=== PATIENT | female | born 1935 | race Hispanic/Latino ===

== ENCOUNTER 2018-05-02 05:06 | Inpatient (IN) | payer MEDICARE ==
--- NOTE | 2018-05-01 19:15 | NUR ---
ASSESSMENT; REPORT FROM CHRISTOS ZHAO. PATIENT ARRIVED TO ROOM 209 ACCOMPANIED BY ER NURSE. PATIENT INTUBATED AND SEDATED. ETT 7.5 @ 22 CM AT LIP VENT SETTINGS AC RATE 18/TV 500 /PEEP 5 / FIO2 50 %. DIPRIVAN, VERSED AND LEVOPHED DRIPS INFUSING BY IV. PATIENT OPENS EYES, R PUPIL SLIGHTLY LARGER THAN LEFT, MOVES ALL EXTREMITIES WEAK X 4, LUNGS COARSE, ABDOMEN SOFT, LARGE AMT BROWN BM PER ADULT DIAPER, PEDAL PULSES WEAK , BILATERAL PEDAL EDEMA 3 +. SEE FLOWSHEET FOR COMPLETE ASSESSMENT. Addendum: 05/03/18 at 0250 by TASHI RODRIGUEZ RN RN DISREGARD NOTE-WRONG DATE
[~2018-05-02] VITALS: Ht 162.6 cm; Wt 109.5 kg
[2018-05-02] VITALS (12 sets, daily range): BP systolic 91–134; BP diastolic 47–96
[~2018-05-02 05:06] MED LIST: APIX5TAB PO; CLOP75TA14 PO; FISH1CAP27 PO; GABA-533 PO; LISI2.5T2 PO; METF750T2 PO; SERT25TA5 PO; SIMV40TA59 PO
[2018-05-02] MEDS ORDERED: ONDANSETRON HCL 4 MG/2 ML VIAL ONE (05:22)
[2018-05-02] MEDS ORDERED: FENTANYL CITRATE PF 50 MCG/1 ML 2ML VIAL ONE (05:23)
[2018-05-02] MEDS ORDERED: IPRATROPIUM/ALBUTEROL SULFATE 3 ML SOLUTION IH ONE (05:36)
[2018-05-02 06:22] LABS: BASOPHILS % (AUTO) 0.1 % (0.0-5.0); HEMATOCRIT 37.1 % (36-48); LYMPHOCYTES % (AUTO) 3.4 % (21.0-51.0); MEAN CORPUSCULAR HEMOGLOBIN 31.1 pg (27.0-33.0); MEAN CORPUSCULAR HGB CONC 30.6 g/dL (32.0-36.0); MEAN CORPUSCULAR VOLUME 101.8 fL (79-99); MONOCYTES % (AUTO) 4.4 % (3.0-13.0); NEUTROPHILS % (AUTO) 92.1 % (40.0-77.0); PLATELET COUNT (AUTO) 209 K/uL (130-400); RED BLOOD CELL COUNT(AUTO) 3.64 MIL/uL (4.00-5.50); RED CELL DISTRIBUTION WIDTH 16.6 % (11.0-15.5); WHITE BLOOD COUNT (AUTO) 12.8 K/uL (4.8-10.8)
[2018-05-02 06:27] LABS: POTASSIUM 5.9 mmol/L (3.5-5.1)
[2018-05-02 06:34] LABS: INR 1.13 (0.85-1.15); PARTIAL THROMBOPLASTIN TIME 29.6 SEC (26.3-35.5); PROTHROMBIN TIME 11.8 SEC (9.6-11.6)
[2018-05-02 06:52] LABS: BILIRUBIN,TOTAL 1.1 mg/dL (0.2-1.0); TOTAL PROTEIN, SERUM 7.6 g/dL (6.0-8.3); TROPONIN I 0.15 ng/mL (0.00-0.06)
[2018-05-02] MEDS ORDERED: ACETAMINOPHEN 325 MG TAB PO PRN (07:30)
[2018-05-02] MEDS ORDERED: MORPHINE SULFATE 4 MG/1ML SYG IV PRN (07:30)
[2018-05-02] MEDS ORDERED: HYDRALAZINE HCL 20 MG/ML VIAL IV PRN (07:30)
[2018-05-02] MEDS ORDERED: MORPHINE SULFATE 2 MG/ML 1ML SYG IV PRN (07:30)
[2018-05-02] MEDS ORDERED: SODIUM BICARB 8.4% 50ML SYRING 150 MEQ in DEXTROSE 5%-WATER 1,000 ML IV SCH (07:30)
[2018-05-02] MEDS: FAMOTIDINE/PF 20 MG/2 ML VIAL IV SCH ×2 (09:00→21:18)
[2018-05-02] MEDS: HEPARIN SODIUM 5000UNIT/ML 1ML VIAL SQ SCH ×3 (09:00→21:21)
[2018-05-02] MEDS ORDERED: METOPROLOL TARTRATE 25 MG TAB PO SCH (09:00)
[2018-05-02 09:14] LABS: MAGNESIUM 1.7 mg/dL (1.80-2.40); PHOSPHORUS 6.6 mg/dL (2.5-4.9); TROPONIN I 0.19 ng/mL (0.00-0.06)
[2018-05-02] MEDS ORDERED: NOREPINEPHRINE BITARTRATE 1 MG/1 ML ML IV ONE ×2 (09:20→17:43)
[2018-05-02] MEDS ORDERED: NALOXONE HCL 0.4 MG/1 ML ML ONE ×3 (10:24→14:35)
[2018-05-02 11:05] LABS: ABG BASE EXCESS -4.5 mmol/L (-2.0-3.0); ABG HCO3 32.2 mmol/L (21.0-28.0); ABG OXYGEN SATURATION 94.9 % (95.0-99.0); ABG PCO2 149 mmHg (32-45)
[2018-05-02] MEDS ORDERED: ETOMIDATE 2 MG/ML 10 ML VIAL IVP ONE (12:00)
[2018-05-02] MEDS ORDERED: SUCCINYLCHOLINE CHLORIDE 20 MG/ML 10 ML VIAL IVP ONE (12:00)
--- NOTE | 2018-05-02 12:30 | NUR ---
PT UNRESPONSIVE UNABLE TO OBTAIN HISTORY Addendum: 05/02/18 at 1436 by LUDIVINA VERGARA Amended: Links added.
[2018-05-02 15:08] LABS: ABG BASE EXCESS -3.6 mmol/L (-2.0-3.0); ABG HCO3 30.5 mmol/L (21.0-28.0); ABG OXYGEN SATURATION 98.6 % (95.0-99.0); ABG PCO2 128 mmHg (32-45)
[2018-05-02 16:44] LABS: TROPONIN I 0.2 ng/mL (0.00-0.06)
[2018-05-02] MEDS ORDERED: PROPOFOL 1000 MG/100 ML 100 ML IV ONE (17:10)
[2018-05-02] MEDS ORDERED: MIDAZOLAM HCL 1 MG/ML 2ML VIAL ONE (17:27)
[2018-05-02 18:02] LABS: ABG BASE EXCESS -4.3 mmol/L (-2.0-3.0); ABG HCO3 24.2 mmol/L (21.0-28.0); ABG OXYGEN SATURATION 95.5 % (95.0-99.0); ABG PCO2 59 mmHg (32-45)
--- NOTE | 2018-05-02 19:15 | NUR ---
ASSESSMENT; REPORT FROM CHRISTOS ZHAO. PATIENT ARRIVED TO ROOM 209 ACCOMPANIED BY ER NURSE. PATIENT INTUBATED AND SEDATED. ETT 7.5 @ 21 CM AT LIP VENT SETTINGS AC RATE 18/TV 500 /PEEP 5 / FIO2 50 %. DIPRIVAN, VERSED AND LEVOPHED DRIPS INFUSING BY IV. PATIENT OPENS EYES, R PUPIL SLIGHTLY LARGER THAN LEFT, MOVES ALL EXTREMITIES WEAK X 4, LUNGS COARSE, ABDOMEN SOFT, LARGE AMT BROWN BM PER ADULT DIAPER, PEDAL PULSES WEAK , BILATERAL PEDAL EDEMA 3 +. SEE FLOWSHEET FOR COMPLETE ASSESSMENT.
[2018-05-02 19:34] LABS: ABG BASE EXCESS -4.5 mmol/L (-2.0-3.0); ABG HCO3 25.7 mmol/L (21.0-28.0); ABG OXYGEN SATURATION 78.5 % (95.0-99.0); ABG PCO2 77 mmHg (32-45)
[2018-05-02] MEDS ORDERED: SODIUM BICARB 50MEQ 50ML VIAL ONE (19:37)
[2018-05-02] MEDS ORDERED: SODIUM BICARB 50MEQ 50ML VIAL IV STA (19:38)
[2018-05-02] MEDS ORDERED: SODIUM BICARB 50MEQ 50ML VIAL IV SCH (19:45)
--- NOTE | 2018-05-02 20:20 | NUR ---
TELEPHONE CONSENT OBTAINED FROM SON, R IJ CENTRAL LINE INSERTED BY DR CAO. PATIENT TOLERATED WELL.
[2018-05-02 21:10] LABS: APPEARANCE,URINE Turbid (CLEAR); BILIRUBIN,URINE Moderate (NEGATIVE); COLOR,URINE Dark Yellow (YELLOW); GLUCOSE, URINE (UA) Negative (NEGATIVE); KETONES,URINE Trace mg/dL (NEGATIVE); LEUKOCYTE ESTERASE ,URINE Moderate (NEGATIVE); NITRATE,URINE Negative (NEGATIVE); OCCULT BLOOD,URINE Small (NEGATIVE); PROTEIN,URINE POS 2+ (NEGATIVE)
[2018-05-02] MEDS: SODIUM CHLORIDE 0.9% 1000ML 1,000 ML IV SCH (21:18)
[2018-05-02] MEDS: PROPOFOL 1000 MG/100 ML 100 ML IV PRN (21:18)
[2018-05-02 21:29] LABS: BACTERIA,URINE Moderate /HPF (None Seen); SQUAMOUS EPITHELIAL CELL,UR Moderate /HPF (0-2); WBC,URINE 26-50 /HPF (0-1)
[2018-05-02 21:31] LABS: AMORPHOUS SEDIMENT,UR Few /LPF (None Seen)
[2018-05-02] MEDS: NOREPINEPHRINE 4MG/NS 250ML 250 ML IV SCH (22:47)
--- NOTE | 2018-05-02 23:00 | NUR ---
R KNEE IMMOBILIZER APPLIED PER DR CHIOMA GALLOWAY.
[2018-05-03] VITALS (35 sets, daily range): BP systolic 81–131; BP diastolic 48–97
[2018-05-03 00:26] LABS: TROPONIN I 0.44 ng/mL (0.00-0.06)
--- NOTE | 2018-05-03 00:28 | NUR ---
UA RESULT REPORTED TO IGNACIO DONALDSON,CERAMIC ENGINEER
[2018-05-03] MEDS: PROPOFOL 1000 MG/100 ML 100 ML IV PRN ×4 (02:29→21:16)
[2018-05-03 03:53] LABS: HEMATOCRIT 33.6 % (36-48); MEAN CORPUSCULAR HEMOGLOBIN 31.2 pg (27.0-33.0); MEAN CORPUSCULAR HGB CONC 31.8 g/dL (32.0-36.0); MEAN CORPUSCULAR VOLUME 98.1 fL (79-99); NUCLEATED RED BLOOD CELLS 0.3 % (0.0-0.19); PLATELET COUNT (AUTO) 174 K/uL (130-400); RED BLOOD CELL COUNT(AUTO) 3.43 MIL/uL (4.00-5.50); RED CELL DISTRIBUTION WIDTH 15.9 % (11.0-15.5); WHITE BLOOD COUNT (AUTO) 12.2 K/uL (4.8-10.8)
[2018-05-03 03:54] LABS: ABG BASE EXCESS 0.5 mmol/L (-2.0-3.0); ABG HCO3 23.9 mmol/L (21.0-28.0); ABG OXYGEN SATURATION 99.6 % (95.0-99.0); ABG PCO2 35 mmHg (32-45)
[2018-05-03] MEDS: NOREPINEPHRINE 4MG/NS 250ML 250 ML IV SCH (04:14)
[2018-05-03 04:25] LABS: ALBUMIN 2.4 g/dL (3.5-5.0); BILIRUBIN,TOTAL 1.3 mg/dL (0.2-1.0); CREATININE 2.3 mg/dL (0.5-1.5); TOTAL PROTEIN, SERUM 6.5 g/dL (6.0-8.3); TROPONIN I 0.5 ng/mL (0.00-0.06)
[2018-05-03 04:32] LABS: POTASSIUM 6.1 mmol/L (3.5-5.1)
[2018-05-03] MEDS: SODIUM POLYSTYRENE SULFONATE 15 GM/60 ML ML NG SCH (05:56)
[2018-05-03] MEDS: INSULIN HUMULIN R 100 UNIT/ML 3ML SQ SCH ×4 (06:00→18:00)
[2018-05-03] MEDS: FAMOTIDINE/PF 20 MG/2 ML VIAL IV SCH ×2 (08:46→21:06)
[2018-05-03] MEDS: HEPARIN SODIUM 5000UNIT/ML 1ML VIAL SQ SCH ×3 (08:53→21:09)
--- NOTE | 2018-05-03 11:30 | NUR ---
Nutrition Intervention: Nutrition consult due to database. Pt. admitted with Dx of Distal Fx to Rt. Femur. Pt. currently intubated and sedated. Pt. with OG tube in place. Pt. NPO. Labs reviewed(Alb 2.4, BUN 39, Creat 2.3, GFR 22). Meds: Propofol@24.48ml/hr(provides 646kcal daily). LBM: 05/02/18. SR-14, elastic / 3+ Edema BLE. BMI: 46.9, morbid obesity. Recommendations: 1) Rec. TF with Nepro@15ml/hr, increasing by 5ml every 5 hrs to goal rate of 30ml/hr(Will provide 1296kcal & 58gm Pro daily) 2) Flush with 120ml free water every 6 hrs. 3) Continue to monitor pt's nutritional status and TF tolerance. 4) Consult RD as nutrition concerns arise. Addendum: 05/03/18 at [address] Amended: Links added.
[2018-05-03] MEDS: SODIUM CHLORIDE 0.9% 1000ML 1,000 ML IV SCH (11:36)
[2018-05-03] MEDS: IPRATROPIUM/ALBUTEROL SULFATE 3 ML SOLUTION IH PRN (11:45)
--- NOTE | 2018-05-03 14:00 | NUR ---
SPOKE TO DR. BEDOLLA AND CONFIRMED CONSULTATION. DR. BEDOLLA AT BEDSIDE WITH PATIENT AND FAMILY MEMBERS DISCUSSING POSSIBLE RIGHT FEMUR SURGERY.
--- NOTE | 2018-05-03 14:09 | NUR ---
DC PLAN VISITED WITH PATIENT. PATIENT INTUBATED. NO FAMILY AT BEDSIDE. 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. WILL NEED TO VERIFY WITH FAMILY IF THAT WILL BE THE PLAN TO RETURN ONCE PATIENT IS STABLE. CM WILL CONTINUE TO FOLLOW. Addendum: 05/03/18 at 1413 by SIDNEY RUIZ RN CM Amended: Links added.
[2018-05-03] MEDS ORDERED: CEFAZOLIN SODIUM 1 GM VIAL IVP SCH (16:15)
[2018-05-03] MEDS: MIDAZOLAM 100MG-0.9% NS 100ML 100 ML IV PRN (16:54)
[2018-05-04] VITALS (23 sets, daily range): BP systolic 83–163; BP diastolic 40–94
[2018-05-04] MEDS: SODIUM CHLORIDE 0.9% 1000ML 1,000 ML IV SCH ×2 (02:24→14:37)
[2018-05-04] MEDS: PROPOFOL 1000 MG/100 ML 100 ML IV PRN ×2 (02:24→14:26)
[2018-05-04 03:49] LABS: BASOPHILS % (AUTO) 0.1 % (0.0-5.0); HEMATOCRIT 31.9 % (36-48); LYMPHOCYTES % (AUTO) 3.5 % (21.0-51.0); MEAN CORPUSCULAR HEMOGLOBIN 31.3 pg (27.0-33.0); MEAN CORPUSCULAR HGB CONC 32.8 g/dL (32.0-36.0); MEAN CORPUSCULAR VOLUME 95.4 fL (79-99); MONOCYTES % (AUTO) 6.4 % (3.0-13.0); NUCLEATED RED BLOOD CELLS 0.1 % (0.0-0.19); PLATELET COUNT (AUTO) 175 K/uL (130-400); RED BLOOD CELL COUNT(AUTO) 3.34 MIL/uL (4.00-5.50); RED CELL DISTRIBUTION WIDTH 15.8 % (11.0-15.5); WHITE BLOOD COUNT (AUTO) 11.3 K/uL (4.8-10.8)
[2018-05-04 04:04] LABS: CREATININE 1.7 mg/dL (0.5-1.5); POTASSIUM 4.8 mmol/L (3.5-5.1)
[2018-05-04] MEDS: NOREPINEPHRINE 4MG/NS 250ML 250 ML IV SCH (05:14)
--- NOTE | 2018-05-04 05:40 | NUR ---
Paged Roman edmond First page for Roman Edmond [phone] Second page for Roman edmond [phone]: Updated on patient admitting diagnosis and current patient's neurological condition. patient barely withdrawing to pain despite sedation being completely off since 444. As per roman edmond continue to monitor patient neurologically with sedation off. No CT needed at the moment.
[2018-05-04] MEDS: INSULIN HUMULIN R 100 UNIT/ML 3ML SQ SCH ×4 (06:00→18:00)
[2018-05-04] MEDS: SODIUM POLYSTYRENE SULFONATE 15 GM/60 ML ML NG SCH (06:00)
--- NOTE | 2018-05-04 08:00 | NUR ---
PAGED DR. WARNER TO CONFIRM CONSULTATION. ECHO COMPLETED YESTERDAY. WAITING FOR CARDIAC CLEARANCE FOR POSSIBLE RIGHT FEMUR SURGERY BY DR. BEDOLLA.
[2018-05-04] MEDS: HEPARIN SODIUM 5000UNIT/ML 1ML VIAL SQ SCH ×3 (08:10→21:24)
[2018-05-04] MEDS: FAMOTIDINE/PF 20 MG/2 ML VIAL IV SCH ×2 (08:26→21:23)
--- NOTE | 2018-05-04 09:54 | NUR ---
DR. BEDOLLA VISITED AND ASSESSED PATIENT. UPDATED ON CURRENT LAB VALUES AND PATIENT STATUS. SURGERY SCHEDULED FOR 05/06/18.
[2018-05-04] MEDS ORDERED: LACTULOSE 20 GM/30 ML UDCUP PO PRN (10:30)
[2018-05-04] MEDS ORDERED: VANCOMYCIN PROTOCOL PER PHARMACY IV SCH (10:30)
--- NOTE | 2018-05-04 10:31 | NUR ---
DR. CAO VISITED AND ASSESSED PATIENT. UPDATED ON LABS AND PATIENT STATUS. ORDERS GIVEN SEE CHART.
[2018-05-04] MEDS ORDERED: COMPOUND IV REFRIGERATED 1 EACH IVSOLN MISC PRN (10:45)
[2018-05-04] MEDS: ZOSYN 3.375GM+NS 50ML 50 ML IV SCH ×2 (11:25→18:35)
[2018-05-04] MEDS: VANCOMYCIN 1.75 GM in SODIUM CHLORIDE 0.9% 250 ML IV SCH (12:55)
[2018-05-04] MEDS: IPRATROPIUM/ALBUTEROL SULFATE 3 ML SOLUTION IH PRN (19:14)
[2018-05-04] MEDS: DOCUSATE NA 100MG/10ML UDCUP NG SCH (21:23)
[2018-05-05] VITALS (23 sets, daily range): BP systolic 83–140; BP diastolic 35–70
[2018-05-05] MEDS: IPRATROPIUM/ALBUTEROL SULFATE 3 ML SOLUTION IH PRN ×5 (00:10→23:17)
[2018-05-05] MEDS: SODIUM POLYSTYRENE SULFONATE 15 GM/60 ML ML NG SCH (02:08)
[2018-05-05] MEDS: ZOSYN 3.375GM+NS 50ML 50 ML IV SCH ×3 (03:23→18:24)
[2018-05-05] MEDS: NOREPINEPHRINE 4MG/NS 250ML 250 ML IV SCH (05:12)
[2018-05-05] MEDS: SODIUM CHLORIDE 0.9% 1000ML 1,000 ML IV SCH ×2 (05:57→20:15)
[2018-05-05 05:59] LABS: BASOPHILS % (AUTO) 0.1 % (0.0-5.0); EOSINOPHILS % (AUTO) 0.1 % (0.0-8.0); HEMATOCRIT 31.3 % (36-48); LYMPHOCYTES % (AUTO) 4.7 % (21.0-51.0); MEAN CORPUSCULAR HEMOGLOBIN 30.8 pg (27.0-33.0); MEAN CORPUSCULAR HGB CONC 32.8 g/dL (32.0-36.0); MEAN CORPUSCULAR VOLUME 93.9 fL (79-99); MONOCYTES % (AUTO) 6.7 % (3.0-13.0); NEUTROPHILS % (AUTO) 88.4 % (40.0-77.0); PLATELET COUNT (AUTO) 168 K/uL (130-400); RED BLOOD CELL COUNT(AUTO) 3.33 MIL/uL (4.00-5.50); RED CELL DISTRIBUTION WIDTH 15.6 % (11.0-15.5); WHITE BLOOD COUNT (AUTO) 11.1 K/uL (4.8-10.8)
[2018-05-05] MEDS: INSULIN HUMULIN R 100 UNIT/ML 3ML SQ SCH ×5 (06:00→22:45)
[2018-05-05 06:21] LABS: CREATININE 1.3 mg/dL (0.5-1.5); POTASSIUM 3.6 mmol/L (3.5-5.1)
[2018-05-05] MEDS: FAMOTIDINE/PF 20 MG/2 ML VIAL IV SCH ×2 (08:05→22:13)
[2018-05-05] MEDS: PROPOFOL 1000 MG/100 ML 100 ML IV PRN (08:05)
[2018-05-05] MEDS: DOCUSATE NA 100MG/10ML UDCUP NG SCH ×2 (08:05→22:13)
[2018-05-05] MEDS: HEPARIN SODIUM 5000UNIT/ML 1ML VIAL SQ SCH ×3 (08:30→22:16)
[2018-05-05] MEDS: POTASSIUM CHLORIDE 20MEQ/100ML 100 ML IV PRN (11:34)
--- NOTE | 2018-05-05 13:55 | NUR ---
DR. ELLIOTT VISITED AND ASSESSED PATIENT. DR. ELLIOTT OK PATIENT FOR SURGERY TOMORROW.
[2018-05-06] VITALS (28 sets, daily range): BP systolic 62–153; BP diastolic 39–74
[2018-05-06] MEDS: PROPOFOL 1000 MG/100 ML 100 ML IV PRN ×2 (00:25→09:13)
[2018-05-06 03:55] LABS: BASOPHILS % (AUTO) 0.1 % (0.0-5.0); EOSINOPHILS % (AUTO) 0.2 % (0.0-8.0); HEMATOCRIT 30.1 % (36-48); LYMPHOCYTES % (AUTO) 4.8 % (21.0-51.0); MEAN CORPUSCULAR HEMOGLOBIN 30.7 pg (27.0-33.0); MEAN CORPUSCULAR HGB CONC 32.5 g/dL (32.0-36.0); MEAN CORPUSCULAR VOLUME 94.5 fL (79-99); MONOCYTES % (AUTO) 8.9 % (3.0-13.0); PLATELET COUNT (AUTO) 177 K/uL (130-400); RED BLOOD CELL COUNT(AUTO) 3.19 MIL/uL (4.00-5.50); RED CELL DISTRIBUTION WIDTH 15.7 % (11.0-15.5); WHITE BLOOD COUNT (AUTO) 11.2 K/uL (4.8-10.8)
[2018-05-06] MEDS: ZOSYN 3.375GM+NS 50ML 50 ML IV SCH ×3 (04:07→18:09)
[2018-05-06 04:12] LABS: CREATININE 1.2 mg/dL (0.5-1.5); POTASSIUM 3.1 mmol/L (3.5-5.1)
[2018-05-06] MEDS: POTASSIUM CHLORIDE 20MEQ/100ML 100 ML IV PRN ×2 (05:55→10:03)
[2018-05-06] MEDS: INSULIN HUMULIN R 100 UNIT/ML 3ML SQ SCH ×3 (06:00→18:00)
[2018-05-06] MEDS: CEFAZOLIN SODIUM 1 GM VIAL IVP SCH ×2 (07:15→13:40)
[2018-05-06] MEDS: IPRATROPIUM/ALBUTEROL SULFATE 3 ML SOLUTION IH PRN ×4 (07:22→18:12)
--- NOTE | 2018-05-06 07:22 | NUR ---
Dr Nails in earlier. Ordered to transfer patient to Dr Brown's services.
--- NOTE | 2018-05-06 08:00 | NUR ---
PT ASSESSED. NO ACUTE DISTRESS- SEDATED-COMFORTABLE. ONLY OPENS EYES AND WITHDRAWS TO PAIN. WOUND VAC INTACT X 2. RT RADIAL A-LINE IS DAMPENED AND IS NOT ACCURATE- WILL FOLLOW NIBP FOR NOW AND ASK MD TO REMOVE A-LINE ON ROUNDS IT IS NON FUNCTIONAL. CONTINUE TO MONITOR. Addendum: 05/06/18 at 1127 by LUANA BELTRÁN RN RN DISREGARD THIS NOTE -ERROR
[2018-05-06] MEDS: HEPARIN SODIUM 5000UNIT/ML 1ML VIAL SQ SCH ×3 (09:00→20:31)
--- NOTE | 2018-05-06 09:00 | NUR ---
PT ASSESSED. NO ACUTE DISTRESS- SEDATED-COMFORTABLE. ONLY GRIMACES AND WITHDRAWS TO PAIN WHEN STIMULATED
[2018-05-06] MEDS: DOCUSATE NA 100MG/10ML UDCUP NG SCH ×2 (09:05→20:26)
[2018-05-06] MEDS: SODIUM CHLORIDE 0.9% 1000ML 1,000 ML IV SCH (09:05)
[2018-05-06] MEDS: FAMOTIDINE/PF 20 MG/2 ML VIAL IV SCH ×2 (09:05→20:26)
[2018-05-06] MEDS: MIDAZOLAM 100MG-0.9% NS 100ML 100 ML IV PRN (09:14)
[2018-05-06] MEDS: NOREPINEPHRINE 4MG/NS 250ML 250 ML IV SCH (10:10)
--- NOTE | 2018-05-06 10:53 | NUR ---
FOLLOW-UP COMPLETED. Pt CONTINUES TO BE INTUBATED AT THIS TIME. SWEATBAND SEPARATOR WILL CONTINUE TO FOLLOW UP WITH Pt. FORMAL EVALUATION IS RECOMMENDED 24 HOURS POST EXTUBATION. Addendum: 05/06/18 at 1059 by ALLI BRAND, [facility] Amended: Links added.
[2018-05-06] MEDS: VANCOMYCIN 1.75 GM in SODIUM CHLORIDE 0.9% 250 ML IV SCH (10:56)
--- NOTE | 2018-05-06 11:22 | NUR ---
MOTHER AT BEDSIDE. PLAN OF CARE DISCUSSED Addendum: 05/06/18 at 1127 by LUANA BELTRÁN RN RN DISREGARD THIS NOTE -ERROR
--- NOTE | 2018-05-06 11:28 | NUR ---
PT SON HAS BEEN AT BEDSIDE- PLAN OF CARE AND SURGERY DISCUSSED.
--- NOTE | 2018-05-06 12:25 | NUR ---
DR FOLEY ROUNDS MADE AT BEDSIDE- UPDATE GIVEN
--- NOTE | 2018-05-06 12:30 | NUR ---
HAND OFF GIVEN TO O.[place] CREW. PT TO Christos
[2018-05-06] MEDS ORDERED: ROCURONIUM 10MG/1ML SYR 10 MG/ML ML ONE ×2 (12:37→13:48)
[2018-05-06] MEDS ORDERED: FENTANYL CITRATE PF 50 MCG/1 ML 2ML VIAL ONE ×2 (12:38→13:56)
[2018-05-06] MEDS ORDERED: ROPIVACAINE 0.5% 5MG/ML 30ML IJ ONE ×2 (12:38→12:39)
--- NOTE | 2018-05-06 16:24 | NUR ---
Nutrition f/u: At time of RD visit pt in sx for femur fixture. CHRISTOS Chen reports pt will resume TF post procedure. As per RN pt tolerating TF formula pre-procedure. LBM noted in EMR 05/02. RD to f/u with pt post procedure for continued nutrition intervention. Addendum: 05/06/18 at [address] Amended: Links added.
--- NOTE | 2018-05-06 16:36 | NUR ---
PT HAS RETURNED FORM O.R. -STABLE - NO ACUTE CHANGES NOTED. I HAVE PAGED DR BEDOLLA TO CLARIFY A ANCEF ORDER
--- NOTE | 2018-05-06 19:00 | NUR ---
ASSUMED CARE. ASSESSMENT DOCUMENTED. SEDATED & INTUBATED WITH ET TUBE SECURE AND CONNECTED TO VENT WITH PRESCRIBED SETTINGS. BEDSIDE MONITORING AFIB WITH CONTROLLED VENTRICULAR RATE HR 80'S. NO DISTRESS NOTED. OG TUBE PLACEMENT VERIFIED. OG TUBE FEEDING AT 15ML/HR WITH ZERO RESIDUALS. RT LEG WITH ELASTIC DRESSING DRY & INTACT. WILLIAMSON PATENT. ORAL CARE PROVIDED. WILL CONTINUE TO MONITOR.
[2018-05-07] VITALS (27 sets, daily range): BP systolic 102–149; BP diastolic 42–64
[2018-05-07] MEDS: SODIUM CHLORIDE 0.9% 1000ML 1,000 ML IV SCH (00:37)
[2018-05-07] MEDS: ZOSYN 3.375GM+NS 50ML 50 ML IV SCH ×3 (02:28→17:52)
[2018-05-07 03:40] LABS: BASOPHILS % (AUTO) 0.1 % (0.0-5.0); EOSINOPHILS % (AUTO) 0.4 % (0.0-8.0); HEMATOCRIT 28.5 % (36-48); LYMPHOCYTES % (AUTO) 5.3 % (21.0-51.0); MEAN CORPUSCULAR HEMOGLOBIN 31.3 pg (27.0-33.0); MEAN CORPUSCULAR HGB CONC 33.2 g/dL (32.0-36.0); MEAN CORPUSCULAR VOLUME 94.2 fL (79-99); MONOCYTES % (AUTO) 8.9 % (3.0-13.0); NEUTROPHILS % (AUTO) 85.3 % (40.0-77.0); NUCLEATED RED BLOOD CELLS 0.1 % (0.0-0.19); PLATELET COUNT (AUTO) 136 K/uL (130-400); RED BLOOD CELL COUNT(AUTO) 3.03 MIL/uL (4.00-5.50); RED CELL DISTRIBUTION WIDTH 15.7 % (11.0-15.5); WHITE BLOOD COUNT (AUTO) 8.3 K/uL (4.8-10.8)
[2018-05-07 03:51] LABS: MAGNESIUM 1.3 mg/dL (1.80-2.40); POTASSIUM 3.2 mmol/L (3.5-5.1)
[2018-05-07] MEDS ORDERED: POTASSIUM CHLORIDE 10% ELIXIR 20 MEQ/15 ML UDCUP ONE (04:06)
[2018-05-07] MEDS: POTASSIUM CHLORIDE 20MEQ/100ML 100 ML IV PRN (04:16)
[2018-05-07] MEDS ORDERED: MAGNESIUM 2GM PREMIX 50ML 50 ML IV ONE (04:16)
[2018-05-07] MEDS: INSULIN HUMULIN R 100 UNIT/ML 3ML SQ SCH ×4 (06:00→17:52)
--- NOTE | 2018-05-07 07:32 | NUR ---
PT ASSESSED-NO ACUTE CHANGES. SEDATION VACATION STARTED.
--- NOTE | 2018-05-07 09:11 | NUR ---
DR Jamie TUCKER MADE ROUNDS- UPDATED ON V/S,MEDS,IO'S,CXR-ORDERS RECIEVED. WILL GIVE LASIX AND DC IVF
[2018-05-07] MEDS: FAMOTIDINE/PF 20 MG/2 ML VIAL IV SCH ×2 (09:30→20:52)
[2018-05-07] MEDS: DOCUSATE NA 100MG/10ML UDCUP NG SCH ×2 (09:30→20:52)
[2018-05-07] MEDS: FUROSEMIDE 10 MG/ML 4ML VIAL IV SCH (09:30)
[2018-05-07] MEDS: POTASSIUM CHLORIDE 10% ELIXIR 20 MEQ/15 ML UDCUP PO PRN ×2 (09:33→13:51)
[2018-05-07] MEDS: HEPARIN SODIUM 5000UNIT/ML 1ML VIAL SQ SCH ×3 (09:33→20:53)
[2018-05-07 10:05] LABS: ABG BASE EXCESS 0.6 mmol/L (-2.0-3.0); ABG HCO3 23.3 mmol/L (21.0-28.0); ABG OXYGEN SATURATION 89.8 % (95.0-99.0); ABG PCO2 32 mmHg (32-45)
--- NOTE | 2018-05-07 10:20 | NUR ---
SEDATION VACATION OUTCOME- NOW OPENS EYES/GAGS AND COUGHS. DEBILITY NOTED. NOT TRIGGERING VENT ALARMS. WILL KEEP SEDATION OFF FOR NOW. FIO2 BACK TO 40% PER R.T. SINGH 4
--- NOTE | 2018-05-07 11:30 | NUR ---
DR Jamie LARA MADE ROUNDS- UPDATED ON V/S,MEDS, IO'S, CXR- ORDERS RECEIVED.
[2018-05-07] MEDS: ARTIFICAL TEARS SOL 15 ML OU SCH ×2 (12:29→17:52)
--- NOTE | 2018-05-07 14:58 | NUR ---
PT HAD A LARGE LOOSE BM THAT SOILED HER ADDIS WRAP DRESSING. I REMOVED IT. PT HAS 6 LAPAROSCOPIC TYPE INCISIONS WITH MIAH-PLEASE SEE PHOTO. ALL ARE STAPLED. CLEAN AND DRY. AREAS SWABBED WITH BETADINE AND COVERED WITH CURAD GAUZE DRESSINGS AND SECURED WITH OP SITE
--- NOTE | 2018-05-07 15:15 | NUR ---
DR BEDOLLA MADE ROUNDS-EXAMINED RT LEG DRESSING. UPDATED ON LABS/VS AND PLAN OF CARE.NO NEW ORDERS
--- NOTE | 2018-05-07 18:57 | NUR ---
HAND OFF REPORT GIVEN TO TASHI SHER
[2018-05-08] VITALS (25 sets, daily range): BP systolic 92–152; BP diastolic 46–71
[2018-05-08] MEDS: ARTIFICAL TEARS SOL 15 ML OU SCH ×4 (00:31→18:09)
[2018-05-08] MEDS: ZOSYN 3.375GM+NS 50ML 50 ML IV SCH ×3 (02:30→18:29)
[2018-05-08 03:39] LABS: BASOPHILS % (AUTO) 0.1 % (0.0-5.0); EOSINOPHILS % (AUTO) 0.8 % (0.0-8.0); HEMATOCRIT 27.5 % (36-48); LYMPHOCYTES % (AUTO) 6.2 % (21.0-51.0); MEAN CORPUSCULAR HEMOGLOBIN 31.6 pg (27.0-33.0); MEAN CORPUSCULAR HGB CONC 33.1 g/dL (32.0-36.0); MEAN CORPUSCULAR VOLUME 95.3 fL (79-99); MONOCYTES % (AUTO) 8.4 % (3.0-13.0); NEUTROPHILS % (AUTO) 84.5 % (40.0-77.0); NUCLEATED RED BLOOD CELLS 0.2 % (0.0-0.19); PLATELET COUNT (AUTO) 163 K/uL (130-400); RED BLOOD CELL COUNT(AUTO) 2.89 MIL/uL (4.00-5.50); RED CELL DISTRIBUTION WIDTH 15.4 % (11.0-15.5); WHITE BLOOD COUNT (AUTO) 10.3 K/uL (4.8-10.8)
[2018-05-08 03:42] LABS: MAGNESIUM 1.6 mg/dL (1.80-2.40); POTASSIUM 3.5 mmol/L (3.5-5.1)
[2018-05-08] MEDS: MAGNESIUM 2GM PREMIX 50ML 50 ML IV PRN (06:00)
[2018-05-08] MEDS: INSULIN HUMULIN R 100 UNIT/ML 3ML SQ SCH ×4 (06:00→18:00)
[2018-05-08] MEDS: POTASSIUM CHLORIDE 20MEQ/100ML 100 ML IV PRN (06:00)
--- NOTE | 2018-05-08 08:15 | NUR ---
CPAP trial started by RT. Patient is awake and alert, follows some commands.
[2018-05-08] MEDS: FUROSEMIDE 10 MG/ML 4ML VIAL IV SCH (08:34)
[2018-05-08] MEDS: FAMOTIDINE/PF 20 MG/2 ML VIAL IV SCH ×2 (08:34→21:15)
[2018-05-08] MEDS: DOCUSATE NA 100MG/10ML UDCUP NG SCH ×2 (08:34→19:47)
[2018-05-08] MEDS: HEPARIN SODIUM 5000UNIT/ML 1ML VIAL SQ SCH ×3 (08:35→21:16)
[2018-05-08] MEDS ORDERED: FUROSEMIDE 10 MG/ML 4ML VIAL IV SCH (09:30)
[2018-05-08] MEDS: VANCOMYCIN 1.75 GM in SODIUM CHLORIDE 0.9% 250 ML IV SCH (09:46)
[2018-05-08 10:26] LABS: ABG HCO3 25.2 mmol/L (21.0-28.0); ABG OXYGEN SATURATION 96.1 % (95.0-99.0); ABG PCO2 43 mmHg (32-45)
--- NOTE | 2018-05-08 11:30 | NUR ---
Dr Jamie Baltazar in to see patient, reviewed labs/CXR and gave order to Extubate. Family updated at bedside.
--- NOTE | 2018-05-08 11:50 | NUR ---
Patient extubated to 40% CAM by RT. OGT removed with ETT. Patient tolerated well.
[2018-05-08] MEDS: IPRATROPIUM/ALBUTEROL SULFATE 3 ML SOLUTION IH PRN ×3 (12:03→23:08)
--- NOTE | 2018-05-08 12:20 | NUR ---
Patient having excessive secretions post extubation, RT gave duoneb. Patient is now having stridor. Dr Jamie leone.
[2018-05-08] MEDS ORDERED: RACEPINEPHRINE HCL 2.25% 0.5 ML NEB SOLN ONE (12:23)
--- NOTE | 2018-05-08 12:25 | NUR ---
Dr Jamie Baltazar ordered [facility]. RT and family updated.
[2018-05-08] MEDS ORDERED: RACEPINEPHRINE HCL 2.25% 0.5 ML NEB SOLN NEB PRN (12:30)
--- NOTE | 2018-05-08 12:45 | NUR ---
Patient is on BiPap at ordered settings. RR 20-23 SpO2 96-98%. Patient does not appear to be in any distress. Will continue to monitor.
--- NOTE | 2018-05-08 13:30 | NUR ---
Discussed with patient's son about possibility of needing reintubation. Patient's son states he wants everything done for now. Will make decisions as needed.
--- NOTE | 2018-05-08 13:45 | NUR ---
RD Follow-up Note Patient tolerating Tube feeding: Nepro @30mL/hr with no residuals. Noted 4+ BLE pitting edema; Patient with Renal Fluid restriction in place, RD to continue to monitor. Patient LBM 05/07/18. Patient monitored labs: BUN 24, GFR 57, Glu 145, Ca 7.9, Mg 1.60. RD to continue to monitor. Please notify RD as nutritional concerns arise. Thank you. Addendum: 05/08/18 at [address] Amended: Links added.
[2018-05-08 14:39] LABS: ABG BASE EXCESS 1.4 mmol/L (-2.0-3.0); ABG HCO3 26.7 mmol/L (21.0-28.0); ABG PCO2 46 mmHg (32-45)
[2018-05-09] VITALS (24 sets, daily range): BP systolic 91–140; BP diastolic 36–71
[2018-05-09] MEDS: ZOSYN 3.375GM+NS 50ML 50 ML IV SCH ×3 (02:58→17:58)
[2018-05-09 05:29] LABS: HEMATOCRIT 28.7 % (36-48); MEAN CORPUSCULAR HEMOGLOBIN 30.8 pg (27.0-33.0); MEAN CORPUSCULAR HGB CONC 32.5 g/dL (32.0-36.0); MEAN CORPUSCULAR VOLUME 94.8 fL (79-99); NUCLEATED RED BLOOD CELLS 0.1 % (0.0-0.19); PLATELET COUNT (AUTO) 177 K/uL (130-400); RED BLOOD CELL COUNT(AUTO) 3.03 MIL/uL (4.00-5.50); RED CELL DISTRIBUTION WIDTH 15.7 % (11.0-15.5); WHITE BLOOD COUNT (AUTO) 9.6 K/uL (4.8-10.8)
[2018-05-09] MEDS: INSULIN HUMULIN R 100 UNIT/ML 3ML SQ SCH ×4 (05:33→18:00)
[2018-05-09] MEDS: ARTIFICAL TEARS SOL 15 ML OU SCH ×4 (05:34→17:58)
[2018-05-09 05:43] LABS: CREATININE 0.9 mg/dL (0.5-1.5); MAGNESIUM 1.7 mg/dL (1.80-2.40); POTASSIUM 3.9 mmol/L (3.5-5.1)
[2018-05-09] MEDS: MAGNESIUM 2GM PREMIX 50ML 50 ML IV PRN (06:36)
[2018-05-09] MEDS: IPRATROPIUM/ALBUTEROL SULFATE 3 ML SOLUTION IH PRN ×3 (06:47→23:17)
[2018-05-09] MEDS: DOCUSATE NA 100MG/10ML UDCUP NG SCH ×2 (08:02→20:37)
[2018-05-09] MEDS: FUROSEMIDE 10 MG/ML 4ML VIAL IV SCH (08:02)
[2018-05-09] MEDS: FAMOTIDINE/PF 20 MG/2 ML VIAL IV SCH ×2 (08:05→20:37)
[2018-05-09] MEDS: HEPARIN SODIUM 5000UNIT/ML 1ML VIAL SQ SCH ×3 (08:06→20:34)
--- NOTE | 2018-05-09 10:00 | NUR ---
DYSPHAGIA EVAL COMPLETED. +S/S OF ASPIRATION WITH AND PUDDING TEXTURE. RECOMMEND NPO, SHORT-TERM ALTERNATE MEANS OF NUTRITION/HYDRATION. PATIENT INFORMATION: Pt IS AN 82 YEAR OLD FEMALE REFERRED FOR A BEDSIDE DYSPHAGIA EVAL SECONDARY TO 24 HPURS POST EXTUBATION. Pt AAOX2 AND COOPERATIVE DURING THE EVALUATION. Pt WITH VENTI MASK IN PLACE. Pt CURRENTLY ADMITTED SECONDARY TO DISTAL FEMUR FRACTURE WITH SURGICAL INTERVENTION, HYPOTENSION, INTUBATED UPON ADMISSION. PT WITH PAST MEDICAL HISTORY SIGNIFICANT FOR DIABETES, HYPERTENSION, HYPERLIPIDEMIA. EVALUATION: Pt PRESENTS WITH OROPHARYNGEAL DYSPHAGIA CAUSED BY DECREASED ORAL MOTOR STRENGTH AND COORDINATION, DECREASED PRESSURE GENERATION WITHIN THE PHARYNX, DECREASED LARYNGEAL ELEVATION/EXCURSION, DELAYED PHARYNGEAL RESPONSE TIME EVIDENCED BY DECREASED BOLUS STRIPPING FROM SPOON, POOLING IN ANTERIOR SULCUS, ANTERIOR SPILLAGE AND +S/S OF ASPIRATION OF WET VOCAL QUALITY AND COUGH RESPONSE AFTER THE SWALLOW. RECOMMENDATIONS: 1. NPO 2. SHORT-TERM ALTERNATE MEANS OF NUTRITION/HYDRATION 3. RE-EVAL IN 1-2 DAYS. 4. DYSPHAGIA THERAPY 3-5X WEEK TO INCREASE ORAL MOTOR STRENGTH AND PHARYNGEAL SWALLOW: LTG#1: Pt WILL TOLERATE LEAST RESTRICTIVE DIET TO MEET NUTRITION/HYDRATION WITH NO S/S OF ASPIRATION. LTG#2: SKILLED EDUCATION Pt/FAMILY/STAFF STG#1: Pt WILL PARTICIPATE IN LARYNGEAL ELEVATION/EXCURSION EXERCISES WITH 80% ACCURACY. STG#2: Pt WILL PARTICIPATE IN TONGUE BASE RETRACTION EXERCISES WITH 80% ACCURACY. STG#3: Pt WILL PARTICIPATE IN ORAL MOTOR EXERCISES WITH 80% ACCURACY. STG#4: Pt WILL PARTICIPATE IN BURGESS WATER PROTOCOL WITH NO S/S OF ASPIRATION. STG#5: PT WILL BE ABLE TO PARTICIPATE IN MBSS. STG#6: SKILLED EDUCATION Pt/FAMILY/STAFF. G-CODES SWALLOWING: [id number] Addendum: 05/09/18 at 1257 by SINCERE ARIAS Amended: Links added.
[2018-05-09] MEDS: VANCOMYCIN 1.75 GM in SODIUM CHLORIDE 0.9% 250 ML IV SCH (10:14)
[2018-05-09] MEDS ORDERED: FUROSEMIDE 10 MG/ML 4ML VIAL IV SCH (13:00)
[2018-05-10] VITALS (23 sets, daily range): BP systolic 120–272; BP diastolic 42–267
[2018-05-10] MEDS: ZOSYN 3.375GM+NS 50ML 50 ML IV SCH ×3 (02:26→20:59)
[2018-05-10 04:14] LABS: HEMATOCRIT 28.1 % (36-48); MEAN CORPUSCULAR HEMOGLOBIN 30.9 pg (27.0-33.0); MEAN CORPUSCULAR HGB CONC 32.6 g/dL (32.0-36.0); MEAN CORPUSCULAR VOLUME 94.8 fL (79-99); NUCLEATED RED BLOOD CELLS 0.1 % (0.0-0.19); PLATELET COUNT (AUTO) 224 K/uL (130-400); RED BLOOD CELL COUNT(AUTO) 2.96 MIL/uL (4.00-5.50); RED CELL DISTRIBUTION WIDTH 15.4 % (11.0-15.5); WHITE BLOOD COUNT (AUTO) 10.2 K/uL (4.8-10.8)
[2018-05-10 04:21] LABS: MAGNESIUM 1.7 mg/dL (1.80-2.40); POTASSIUM 3.6 mmol/L (3.5-5.1)
[2018-05-10] MEDS: INSULIN HUMULIN R 100 UNIT/ML 3ML SQ SCH ×4 (05:49→18:00)
[2018-05-10] MEDS: MAGNESIUM 2GM PREMIX 50ML 50 ML IV PRN (06:18)
[2018-05-10] MEDS: ARTIFICAL TEARS SOL 15 ML OU SCH ×4 (06:19→18:00)
[2018-05-10] MEDS: IPRATROPIUM/ALBUTEROL SULFATE 3 ML SOLUTION IH PRN (07:07)
[2018-05-10] MEDS ORDERED: FUROSEMIDE 10 MG/ML 4ML VIAL IV SCH ×2 (08:45→12:30)
[2018-05-10] MEDS: FUROSEMIDE 10 MG/ML 4ML VIAL IV SCH ×2 (08:54→12:30)
[2018-05-10] MEDS: FAMOTIDINE/PF 20 MG/2 ML VIAL IV SCH ×2 (08:54→21:19)
[2018-05-10] MEDS: DOCUSATE NA 100MG/10ML UDCUP NG SCH ×2 (08:55→21:19)
[2018-05-10] MEDS: HEPARIN SODIUM 5000UNIT/ML 1ML VIAL SQ SCH ×3 (08:57→21:20)
--- NOTE | 2018-05-10 10:04 | NUR ---
HOLD RE-MARIA DEL CARMEN. Pt CURRENTLY ON BIPAP AND NOT ABLE TO PARTICIPATE IN THE EVALUATION AT THIS TIME. RE-COMMEND RE-EVAL FOR TOMORROW VS WHEN CURRENT STATUS IMPROVES. MANAGER PRINT WILL CONTINUE TO Pt AT THIS TIME. Addendum: 05/10/18 at 1010 by ALLI BARND, SPT ST Amended: Links added.
--- NOTE | 2018-05-10 12:00 | NUR ---
[facility] consult Patient assessed as ordered. Patient with st II ulcer at coccyx and DTI measuring approx 1 x 2 x 0 cms on sacral area. Patient is on special ICU bed. [facility] recommendations submitted. Addendum: 05/10/18 at 1340 by VENUS ANGELES RN/ Amended: Links added.
--- NOTE | 2018-05-10 14:51 | NUR ---
SON AND IN ROOM AND PT IS HAVING A CONVERSATION. SON WAS ADVISED THAT THE PATIENT WANTED FOR HIM TO COME AND GET HER AND TAKE HER TO THE RETIREMENT.
[2018-05-10] MEDS ORDERED: MAGNESIUM 2GM PREMIX 50ML 50 ML IV PRN (17:00)
[2018-05-10] MEDS: IPRATROPIUM/ALBUTEROL SULFATE 3 ML SOLUTION IH SCH (19:11)
[2018-05-10] MEDS: VANCOMYCIN 1.75 GM in SODIUM CHLORIDE 0.9% 250 ML IV SCH (20:59)
--- NOTE | 2018-05-10 21:00 | NUR ---
NG TUBE PT AGREED TO NG TUBE INSERTION AT THIS TIME. 14FR NG TUBE PLACED TO LEFT NARE PT TOLERATED FAIR. PLACEMENT ASSESSED AND CONFIRMED WITH AIR BOLUS X 2 RNS. WILL CONTINUE TO MONITOR.
[2018-05-11] VITALS (22 sets, daily range): BP systolic 113–141; BP diastolic 44–102
[2018-05-11] MEDS: FUROSEMIDE 10 MG/ML 4ML VIAL IV SCH ×2 (00:03→11:27)
[2018-05-11] MEDS: ARTIFICAL TEARS SOL 15 ML OU SCH ×4 (00:04→18:00)
[2018-05-11] MEDS: IPRATROPIUM/ALBUTEROL SULFATE 3 ML SOLUTION IH SCH ×5 (00:11→23:45)
[2018-05-11] MEDS: ZOSYN 3.375GM+NS 50ML 50 ML IV SCH ×3 (02:17→18:43)
[2018-05-11 04:00] LABS: BASOPHILS % (AUTO) 0.4 % (0.0-5.0); EOSINOPHILS % (AUTO) 1.1 % (0.0-8.0); HEMATOCRIT 26.9 % (36-48); LYMPHOCYTES % (AUTO) 6.5 % (21.0-51.0); MEAN CORPUSCULAR HEMOGLOBIN 31.9 pg (27.0-33.0); MEAN CORPUSCULAR HGB CONC 33.7 g/dL (32.0-36.0); MEAN CORPUSCULAR VOLUME 94.5 fL (79-99); MONOCYTES % (AUTO) 6.3 % (3.0-13.0); NEUTROPHILS % (AUTO) 85.7 % (40.0-77.0); PLATELET COUNT (AUTO) 199 K/uL (130-400); RED BLOOD CELL COUNT(AUTO) 2.84 MIL/uL (4.00-5.50); RED CELL DISTRIBUTION WIDTH 15.3 % (11.0-15.5); WHITE BLOOD COUNT (AUTO) 7.9 K/uL (4.8-10.8)
[2018-05-11 04:31] LABS: MAGNESIUM 1.7 mg/dL (1.80-2.40); PHOSPHORUS 3.9 mg/dL (2.5-4.9); POTASSIUM 3.1 mmol/L (3.5-5.1)
[2018-05-11] MEDS: POTASSIUM CHLORIDE 20MEQ/100ML 100 ML IV PRN ×2 (04:35→06:08)
[2018-05-11 04:47] LABS: ABG BASE EXCESS 5.5 mmol/L (-2.0-3.0); ABG HCO3 30.1 mmol/L (21.0-28.0); ABG OXYGEN SATURATION 96.1 % (95.0-99.0); ABG PCO2 43 mmHg (32-45)
[2018-05-11] MEDS: ACETAMINOPHEN 325 MG TAB PO PRN (05:08)
[2018-05-11] MEDS: INSULIN HUMULIN R 100 UNIT/ML 3ML SQ SCH ×4 (05:58→18:00)
[2018-05-11] MEDS: MAGNESIUM 2GM PREMIX 50ML 50 ML IV PRN (09:05)
[2018-05-11] MEDS: DOCUSATE NA 100MG/10ML UDCUP NG SCH ×2 (09:05→20:19)
[2018-05-11] MEDS: FAMOTIDINE/PF 20 MG/2 ML VIAL IV SCH ×2 (09:06→20:18)
[2018-05-11] MEDS: HEPARIN SODIUM 5000UNIT/ML 1ML VIAL SQ SCH ×3 (09:13→20:25)
--- NOTE | 2018-05-11 10:16 | NUR ---
O2 assessment: Pt on Bipap 09/10 40% Addendum: 05/11/18 at [address]8 [address]ALK RT Amended: Links added.
--- NOTE | 2018-05-11 10:52 | NUR ---
MD ROUNDS DR. CORREA IN TO SEE PATIENT. ORDER RECEIVED TO BE CARRIED OUT.
[2018-05-11 11:56] LABS: APPEARANCE,URINE Clear (CLEAR); BILIRUBIN,URINE Negative (NEGATIVE); COLOR,URINE Yellow (YELLOW); GLUCOSE, URINE (UA) Negative (NEGATIVE); KETONES,URINE Negative (NEGATIVE); LEUKOCYTE ESTERASE ,URINE Negative (NEGATIVE); NITRATE,URINE Negative (NEGATIVE); OCCULT BLOOD,URINE Negative (NEGATIVE); PH,URINE 6.5 (5.0-8.0); PROTEIN,URINE Negative (NEGATIVE); UROBILINOGEN,URINE 0.2 mg/dL (0.2-1.0)
--- NOTE | 2018-05-11 13:00 | NUR ---
MD EBONI SCHMIDT IN TO SEE PT. NEW ORDERS RECEIVED TO BE CARRIED OUT. Addendum: 05/11/18 at 1733 by YUMIKO TUCKER RN RN PATIENT TO REQUIRE 1 MORE DAY OF ICU MONITORING.
[2018-05-11] MEDS ORDERED: HALOPERIDOL 1 MG TABLET PO PRN (15:45)
[2018-05-11] MEDS ORDERED: MAGNESIUM 2GM PREMIX 50ML 50 ML IV PRN (15:45)
--- NOTE | 2018-05-11 20:00 | NUR ---
ASSESSMENT NOTE PATIENT AAOX2 LYING IN BED IN FOWLERS POSITION. REORIENTED TO PLACE AND SITUATION. BREATHING IS REGULAR AND UNLABORED ON 3L NASAL CANNULA. ASSESSMENT COMPLETED. DENIES ACUTE PAIN. AT REST. REPOSITIONED PATIENT FACIAL GRIMACING WITH REPOSITIONING. NG CONTINUOUS FEEDING RUNNING.EQUAL UPPER EXTREMITY HAND DOUBLE BOTTOM DRIVER. RIGHT LOWER EXTREMITY EDEMATOUS 4+. DRESSINGS CLEAN DRY AND INTACT AT SURGICAL SITES. PATIENT NOTED WITH WEAK, WET INEFFECTIVE COUGH. NO ACUTE SIGNS OR SYMPTOMS OF DISTRESS. DEMONSTRATED USE OF CALL LIGHT AND REMOTE FOR PATIENT. CALL LIGHT IN REACH.
[2018-05-11] MEDS: VANCOMYCIN 1.75 GM in SODIUM CHLORIDE 0.9% 250 ML IV SCH (20:13)
[2018-05-12] VITALS (21 sets, daily range): BP systolic 117–161; BP diastolic 53–112
[2018-05-12] MEDS: FUROSEMIDE 10 MG/ML 4ML VIAL IV SCH ×2 (00:07→11:54)
[2018-05-12] MEDS: ARTIFICAL TEARS SOL 15 ML OU SCH ×4 (00:12→18:00)
[2018-05-12] MEDS: ZOSYN 3.375GM+NS 50ML 50 ML IV SCH ×3 (02:10→19:46)
[2018-05-12 04:20] LABS: HEMATOCRIT 30.1 % (36-48); MEAN CORPUSCULAR HEMOGLOBIN 30.9 pg (27.0-33.0); MEAN CORPUSCULAR HGB CONC 32.5 g/dL (32.0-36.0); MEAN CORPUSCULAR VOLUME 95.2 fL (79-99); NUCLEATED RED BLOOD CELLS 0.1 % (0.0-0.19); PLATELET COUNT (AUTO) 311 K/uL (130-400); RED BLOOD CELL COUNT(AUTO) 3.16 MIL/uL (4.00-5.50); RED CELL DISTRIBUTION WIDTH 15.5 % (11.0-15.5); WHITE BLOOD COUNT (AUTO) 9.7 K/uL (4.8-10.8)
[2018-05-12 04:30] LABS: ALBUMIN 2.1 g/dL (3.5-5.0); BILIRUBIN,TOTAL 1.2 mg/dL (0.2-1.0); CREATININE 1.1 mg/dL (0.5-1.5); MAGNESIUM 1.5 mg/dL (1.80-2.40); PHOSPHORUS 3.7 mg/dL (2.5-4.9); POTASSIUM 3.2 mmol/L (3.5-5.1)
[2018-05-12] MEDS: POTASSIUM CHLORIDE 20MEQ/100ML 100 ML IV PRN ×2 (05:01→07:41)
[2018-05-12] MEDS: INSULIN HUMULIN R 100 UNIT/ML 3ML SQ SCH ×4 (05:06→18:00)
[2018-05-12] MEDS: IPRATROPIUM/ALBUTEROL SULFATE 3 ML SOLUTION IH SCH ×4 (06:52→23:48)
[2018-05-12] MEDS: FAMOTIDINE/PF 20 MG/2 ML VIAL IV SCH ×2 (07:41→20:41)
[2018-05-12] MEDS: DOCUSATE NA 100MG/10ML UDCUP NG SCH ×2 (07:41→20:41)
[2018-05-12] MEDS: HEPARIN SODIUM 5000UNIT/ML 1ML VIAL SQ SCH ×3 (08:08→20:45)
[2018-05-12] MEDS ORDERED: MAGNESIUM 2GM PREMIX 50ML 50 ML IV PRN (16:30)
--- NOTE | 2018-05-12 20:05 | NUR ---
ASSESSMENT NOTE PATIENT AAOX3 LYING IN BED IN FOWLERS POSITION WATCHING TV. BREATHING IS REGULAR AND UNLABORED ON 3L NASAL CANNULA. ASSESSMENT COMPLETED. DENIES ACUTE PAIN AT REST. NG CONTINUOUS FEEDING RUNNING. BILATERAL LOWER EXTREMITY EDEMA. DRESSINGS CLEAN DRY AND INTACT AT SURGICAL SITES. PATIENT NOTED WITH WEAK, WET INEFFECTIVE COUGH. NO ACUTE SIGNS OR SYMPTOMS OF DISTRESS. CALL LIGHT IN REACH.
[2018-05-12] MEDS ORDERED: VANCOMYCIN 1.25 GM in SODIUM CHLORIDE 0.9% 250 ML IV SCH (20:45)
[2018-05-12] MEDS ORDERED: VANCOMYCIN 1.75 GM in SODIUM CHLORIDE 0.9% 250 ML IV SCH (21:00)
[2018-05-13] VITALS (15 sets, daily range): BP systolic 115–152; BP diastolic 57–83
[2018-05-13] MEDS: FUROSEMIDE 10 MG/ML 4ML VIAL IV SCH ×2 (00:31→12:17)
[2018-05-13] MEDS: ARTIFICAL TEARS SOL 15 ML OU SCH ×5 (00:31→23:18)
[2018-05-13] MEDS: ZOSYN 3.375GM+NS 50ML 50 ML IV SCH ×3 (02:54→18:16)
[2018-05-13 04:37] LABS: HEMATOCRIT 31.4 % (36-48); MEAN CORPUSCULAR HEMOGLOBIN 31.1 pg (27.0-33.0); MEAN CORPUSCULAR HGB CONC 32.8 g/dL (32.0-36.0); MEAN CORPUSCULAR VOLUME 94.6 fL (79-99); NUCLEATED RED BLOOD CELLS 0.1 % (0.0-0.19); PLATELET COUNT (AUTO) 324 K/uL (130-400); RED BLOOD CELL COUNT(AUTO) 3.32 MIL/uL (4.00-5.50); WHITE BLOOD COUNT (AUTO) 9.7 K/uL (4.8-10.8)
[2018-05-13 04:47] LABS: INR 0.99 (0.85-1.15); PARTIAL THROMBOPLASTIN TIME 28.6 SEC (26.3-35.5); PROTHROMBIN TIME 10.4 SEC (9.6-11.6)
[2018-05-13 04:50] LABS: CREATININE 1.1 mg/dL (0.5-1.5); MAGNESIUM 1.5 mg/dL (1.80-2.40); PHOSPHORUS 2.8 mg/dL (2.5-4.9)
[2018-05-13 04:56] LABS: POTASSIUM 2.8 mmol/L (3.5-5.1)
[2018-05-13] MEDS: POTASSIUM CHLORIDE 20MEQ/100ML 100 ML IV PRN ×3 (05:00→15:35)
[2018-05-13] MEDS: INSULIN HUMULIN R 100 UNIT/ML 3ML SQ SCH ×4 (05:55→21:00)
[2018-05-13] MEDS: IPRATROPIUM/ALBUTEROL SULFATE 3 ML SOLUTION IH SCH ×3 (06:16→18:38)
[2018-05-13] MEDS: DOCUSATE NA 100MG/10ML UDCUP NG SCH ×2 (08:39→21:21)
[2018-05-13] MEDS: POTASSIUM CHLORIDE 10% ELIXIR 20 MEQ/15 ML UDCUP PO PRN (08:39)
[2018-05-13] MEDS: FAMOTIDINE/PF 20 MG/2 ML VIAL IV SCH ×2 (08:39→21:11)
[2018-05-13] MEDS: ACETAMINOPHEN 325 MG TAB PO PRN ×2 (08:40→16:04)
[2018-05-13] MEDS: MAGNESIUM 2GM PREMIX 50ML 50 ML IV PRN (08:47)
[2018-05-13] MEDS: HEPARIN SODIUM 5000UNIT/ML 1ML VIAL SQ SCH ×3 (09:18→21:13)
--- NOTE | 2018-05-13 09:40 | NUR ---
DYSPHAGIA RE-EVAL COMPLETED. +S/S OF ASPIRATION WITH THIN LIQUIDS. RECOMMEND PUREED, NECTAR-THICK LIQUIDS; PILLS CRUSHED. PATIENT INFORMATION: Pt IS AN 82 YEAR OLD FEMALE REFERRED FOR A BEDSIDE DYSPHAGIA RE-EVAL SECONDARY TO IMPROVED STATUS. Pt AAOX2 AND COOPERATIVE DURING THE EVALUATION. Pt WITH NG TUBE IN PLACE ON O2 NASAL CANNULA. Pt CURRENTLY ADMITTED SECONDARY TO DISTAL FEMUR FRACTURE WITH SURGICAL INTERVENTION, HYPOTENSION, INTUBATED UPON ADMISSION. PT WITH PAST MEDICAL HISTORY SIGNIFICANT FOR DIABETES, HYPERTENSION, HYPERLIPIDEMIA. EVALUATION: Pt PRESENTS WITH OROPHARYNGEAL DYSPHAGIA CAUSED BY DECREASED ORAL MOTOR STRENGTH AND COORDINATION, DECREASED PRESSURE GENERATION WITHIN THE PHARYNX, DELAYED PHARYNGEAL RESPONSE TIME EVIDENCED BY DECREASED MASTICATION OF SOLIDS, MULTIPLE SWALLOWS AND +S/S OF ASPIRATION OF COUGH RESPONSE AFTER THE SWALLOW OF THIN LIQUIDS. RECOMMENDATIONS: 1. PUREED, NECTAR-THICK LIQUIDS; PILLS CRUSHED. 2. COMPENSATORY STRATEGIES: *SEATED AT 90 DEGREES *SLOW RATE *SMALL BITES AND SITS 3. CONTINUE PLAN OF CARE ESTABLISHED IN INITIAL EVALUATION. G-CODES SWALLOWING: [id number] Addendum: 05/13/18 at [address] Amended: Links added.
[2018-05-13 15:20] LABS: POTASSIUM 3.4 mmol/L (3.5-5.1)
--- NOTE | 2018-05-13 17:29 | NUR ---
Nutrition f/u: Pt s/p extubation, bedside evaluation and diet advanced to Heart healthy, 75gmCCD diet with texture modification of TIFFANY long as per REGIONAL MARKETING DIRECTOR recommendations. Pt to be monitored for po intake and tolerance. RD to f/u for continued intervention. Addendum: 05/13/18 at [address] Amended: Links added.
[2018-05-13] MEDS ORDERED: VANCOMYCIN 1.25 GM in N.S. 250 ML IV SCH (18:00)
[2018-05-13] MEDS: ONDANSETRON HCL 4 MG/2 ML VIAL IV PRN (18:13)
[2018-05-14] VITALS (7 sets, daily range): BP systolic 91–120; BP diastolic 53–65
[2018-05-14] MEDS: IPRATROPIUM/ALBUTEROL SULFATE 3 ML SOLUTION IH SCH ×5 (00:51→23:49)
--- NOTE | 2018-05-14 01:00 | NUR ---
BREATHING PATIENT STATES DIFFICULTY BREATHING O2 SAT AT 88% ON 2 LPM VIA NC. PATIENT PLACED ON BIPAP 14/8 ON 40 % FIO2 WITH SATS GOING UP TO 96 % AND IS BREATHING BETTER. PATIENT DOES SOUND CONGESTED SCHEDULED LASIX 20 MG IV GIVEN. WILL MONITOR.
[2018-05-14] MEDS: FUROSEMIDE 10 MG/ML 4ML VIAL IV SCH ×2 (01:13→11:37)
--- NOTE | 2018-05-14 01:45 | NUR ---
BREATHING PATIENT ON BIPAP TOLERATING AT THIS TIME LUNGS SOUNDS BETTER POST LASIX UPPER LOBES CLEAR LOWER LOBES STILL CRACKLES. O2 SAT 96 % ON 40 % FIO2.
[2018-05-14] MEDS: ZOSYN 3.375GM+NS 50ML 50 ML IV SCH ×2 (02:31→09:36)
[2018-05-14 04:48] LABS: BASOPHILS % (AUTO) 0.4 % (0.0-5.0); EOSINOPHILS % (AUTO) 1.8 % (0.0-8.0); HEMATOCRIT 29.2 % (36-48); LYMPHOCYTES % (AUTO) 8.6 % (21.0-51.0); MEAN CORPUSCULAR HEMOGLOBIN 31.2 pg (27.0-33.0); MEAN CORPUSCULAR VOLUME 94.8 fL (79-99); MONOCYTES % (AUTO) 8.6 % (3.0-13.0); NEUTROPHILS % (AUTO) 80.6 % (40.0-77.0); PLATELET COUNT (AUTO) 326 K/uL (130-400); RED BLOOD CELL COUNT(AUTO) 3.08 MIL/uL (4.00-5.50); RED CELL DISTRIBUTION WIDTH 15.6 % (11.0-15.5); WHITE BLOOD COUNT (AUTO) 8.4 K/uL (4.8-10.8)
[2018-05-14 04:59] LABS: CREATININE 1.2 mg/dL (0.5-1.5); POTASSIUM 3.3 mmol/L (3.5-5.1)
[2018-05-14] MEDS: ARTIFICAL TEARS SOL 15 ML OU SCH ×2 (05:25→12:00)
[2018-05-14] MEDS: INSULIN HUMULIN R 100 UNIT/ML 3ML SQ SCH ×5 (05:44→21:00)
[2018-05-14] MEDS: POTASSIUM CHLORIDE 20MEQ/100ML 100 ML IV PRN ×2 (06:11→12:00)
[2018-05-14] MEDS: HYDROCODONE/ACETAMINOPHEN 5/325 MG TAB PO PRN (06:49)
[2018-05-14] MEDS ORDERED: PHARMACY COMMUNICATION MISC SCH (08:30)
--- NOTE | 2018-05-14 09:00 | NUR ---
PER PRASHANT ALVAREZ AT THIS TIME Addendum: 05/14/18 at 1949 by ERIN CHAVEZ RN RN entered on incorrect pt.
[2018-05-14] MEDS: FAMOTIDINE/PF 20 MG/2 ML VIAL IV SCH (09:36)
[2018-05-14] MEDS: DOCUSATE NA 100MG/10ML UDCUP NG SCH ×2 (09:37→20:01)
[2018-05-14] MEDS: HEPARIN SODIUM 5000UNIT/ML 1ML VIAL SQ SCH ×3 (09:40→20:14)
[2018-05-14] MEDS: ACETYLCYSTEINE 20% 200MG/ML 4ML VIAL PO SCH ×3 (11:06→23:49)
[2018-05-14] MEDS: LIDOCAINE HCL-MPF 1% 2ML VIAL IVP PRN (12:01)
--- NOTE | 2018-05-14 12:10 | NUR ---
Pt w c/o shortness of breath, O2 sat 79% - N/C in place but noted to be disconnected from wall after nebulizer treatment. Reconnected, pt encouraged to take deep breaths, however dyspnea persisting. Pt placed on BIPAP by RT.
[2018-05-14] MEDS: HALOPERIDOL LACTATE 5 MG/ML VIAL IV PRN ×2 (12:21→20:01)
--- NOTE | 2018-05-14 12:30 | NUR ---
Pt became very anxious on BIPAP - notified Dr. Brown, rec;d orders for haldol 5 mg IV q 6 hours PRN. Before dose was able to be administered, pt adamantly refused to be on BIPAP anymore. O2 sat 96%. Pt placed back on NC @ 4 liters - immediately calmer. O2 sat steady @ 96%.
--- NOTE | 2018-05-14 13:00 | NUR ---
Pt resting in bed calmly, no acute distress. O2 saturation 96% on NC at same rate.
--- NOTE | 2018-05-14 14:35 | NUR ---
MEAL OBSERVATION COMPLETED. PT RAISED TO 90 DEGREES IN BED WITH O2 VIA NASAL CANNULA IN PLACE. SPO2 AT 98% DURING MEAL. Pt PARTICIPATED IN P.O. OF PUREED, NECTAR-THICK LIQUIDS WITH A TOTAL INTAKE OF 50% OF TRAY. Pt WITH NO S/S OF ASPIRATION PRESENT DURING THE MEAL. RECOMMEND CONTINUED PUREED, NECTAR-THICK LIQUIDS. Pt WITH POOR ACTIVITY TOLERANCE AT THIS TIME. DIET UPGRADE TO BE DETERMINED WHEN CURRENT RESPIRATORY STATUS IMPROVES. Addendum: 05/14/18 at 1439 by ALLI BRAND, [facility] ST Amended: Links added.
[2018-05-14] MEDS: BUDESONIDE 0.5 MG/2 ML INH IH SCH (19:45)
[2018-05-14] MEDS: METHYLPREDNISOLONE SOD SUCC 40MG/ML 1ML IVP SCH (20:00)
[2018-05-15] VITALS (7 sets, daily range): BP systolic 102–136; BP diastolic 54–96
[2018-05-15] MEDS: FUROSEMIDE 10 MG/ML 4ML VIAL IV SCH ×3 (00:36→21:07)
[2018-05-15] MEDS: HALOPERIDOL LACTATE 5 MG/ML VIAL IV PRN (02:30)
[2018-05-15 04:45] LABS: BASOPHILS % (AUTO) 0.2 % (0.0-5.0); EOSINOPHILS % (AUTO) 0.1 % (0.0-8.0); LYMPHOCYTES % (AUTO) 3.3 % (21.0-51.0); MEAN CORPUSCULAR HGB CONC 33.4 g/dL (32.0-36.0); MEAN CORPUSCULAR VOLUME 95.6 fL (79-99); NEUTROPHILS % (AUTO) 94.4 % (40.0-77.0); PLATELET COUNT (AUTO) 280 K/uL (130-400); RED BLOOD CELL COUNT(AUTO) 3.24 MIL/uL (4.00-5.50); RED CELL DISTRIBUTION WIDTH 15.7 % (11.0-15.5); WHITE BLOOD COUNT (AUTO) 7.2 K/uL (4.8-10.8)
[2018-05-15 04:57] LABS: B-TYPE NATRIURETIC PEPTIDE 971 pg/mL (0-100)
[2018-05-15 05:15] LABS: CREATININE 1.2 mg/dL (0.5-1.5); MAGNESIUM 1.4 mg/dL (1.80-2.40); PHOSPHORUS 4.7 mg/dL (2.5-4.9); POTASSIUM 4.2 mmol/L (3.5-5.1)
[2018-05-15] MEDS: ARTIFICAL TEARS SOL 15 ML OU SCH ×4 (06:00→18:00)
[2018-05-15] MEDS: INSULIN HUMULIN R 100 UNIT/ML 3ML SQ SCH ×4 (06:20→21:13)
[2018-05-15] MEDS: IPRATROPIUM/ALBUTEROL SULFATE 3 ML SOLUTION IH SCH ×3 (07:13→19:14)
[2018-05-15] MEDS: ACETYLCYSTEINE 20% 200MG/ML 4ML VIAL PO SCH ×3 (07:13→19:15)
[2018-05-15] MEDS: BUDESONIDE 0.5 MG/2 ML INH IH SCH ×2 (07:14→19:15)
[2018-05-15 07:22] LABS: ABG BASE EXCESS 14.6 mmol/L (-2.0-3.0); ABG HCO3 41.7 mmol/L (21.0-28.0); ABG OXYGEN SATURATION 94.9 % (95.0-99.0); ABG PCO2 61 mmHg (32-45)
--- NOTE | 2018-05-15 07:37 | NUR ---
PT RESTLESS UNABLE TO TOLERATE MASK IPPB Addendum: 05/15/18 at 0738 by CITLALLI HERNANDEZ RT Amended: Links added.
--- NOTE | 2018-05-15 08:28 | NUR ---
TREATMENT COMPLETED. Pt RAISED TO 90 DEGREES IN BED. Pt COOPERATIVE WITH COAXING. THERAPEUTIC TRIALS OF ADVANCED TEXTURE OF THIN LIQUIDS PRESENTED X5 WITH LARYNGEAL ELEVATION PALPATED AND PRESENT. PHARYNGEAL RESPONSE TIME DELAYED WITH THROAT CLEAR AFTER THE SWALLOW AND O2 DROP INTO 87 WITH RECOVERY INTO THE 90S THEREAFTER. Pt IS IMPULSIVE WITH P.O. AT THIS TIME, VERBAL CUES REQUIRED DURING INTAKE. RECOMMEND CONTINUED PUREED, NECTAR-THICK LIQUIDS AT THIS TIME. RECOMMEND CONTINUED SAFE SWALLOW PRECAUTIONS OF SEATED AT 90 DEGREES, SMALL BITES AND SIPS, ASSIST WITH P.O. CLIENT BUSINESS MANAGER COORDINATED CARE WITH NURSE KAMI BARNETT). Addendum: 05/15/18 at 0839 by ALLI BRAND, [facility] Amended: Links added.
[2018-05-15] MEDS: FAMOTIDINE/PF 20 MG/2 ML VIAL IV SCH (09:00)
[2018-05-15] MEDS: METHYLPREDNISOLONE SOD SUCC 40MG/ML 1ML IVP SCH ×2 (09:00→21:07)
[2018-05-15] MEDS: HYDROCODONE/ACETAMINOPHEN 5/325 MG TAB PO PRN (09:00)
[2018-05-15] MEDS: DOCUSATE NA 100MG/10ML UDCUP NG SCH ×2 (09:00→22:00)
--- NOTE | 2018-05-15 09:00 | NUR ---
ORAL HEALTH THERAPIST, TU AWARE OF PT STATUS AND BG
[2018-05-15] MEDS: HEPARIN SODIUM 5000UNIT/ML 1ML VIAL SQ SCH ×2 (09:15→13:02)
[2018-05-15] MEDS ORDERED: FUROSEMIDE 10 MG/ML 4ML VIAL IV SCH (09:45)
[2018-05-15] MEDS ORDERED: PROPOFOL 10 MG/ML 20ML VIAL IV ONE ×2 (11:58)
[2018-05-15] MEDS ORDERED: SUCCINYLCHOLINE CHLORIDE 20 MG/ML 10 ML VIAL ONE (11:58)
[2018-05-15] MEDS ORDERED: LIDOCAINE HCL 1% 20 ML VIAL ONE (11:59)
[2018-05-15] MEDS ORDERED: MIDAZOLAM HCL 1 MG/ML 2ML VIAL ONE (12:02)
[2018-05-15] MEDS ORDERED: FENTANYL CITRATE PF 50 MCG/1 ML 2ML VIAL ONE (12:02)
[2018-05-15] MEDS ORDERED: ROCURONIUM 10MG/1ML SYR 10 MG/ML ML ONE (12:02)
[2018-05-15] MEDS ORDERED: ONDANSETRON HCL 4 MG/2 ML VIAL ONE (12:05)
--- NOTE | 2018-05-15 15:00 | NUR ---
TITLE INSURANCE EXAMINER , PAULO AWARE OF PT'S STATUS PT COMPLAINS OF SOB PT PLACED ON BIPAP BUT REFUSED PT THEN PLACE ON NRB
[2018-05-15] MEDS ORDERED: MAGNESIUM 2GM PREMIX 50ML 50 ML IV PRN (16:30)
[2018-05-15 16:40] LABS: ABG BASE EXCESS 16.6 mmol/L (-2.0-3.0); ABG HCO3 44.2 mmol/L (21.0-28.0); ABG OXYGEN SATURATION 95.2 % (95.0-99.0); ABG PCO2 64 mmHg (32-45)
--- NOTE | 2018-05-15 17:00 | NUR ---
PT TRANSFERRED TO 2 FLOOR ROOM 223 PT ALERT AND ORIENTED X 2 TRANSFERRED ON A NONRB MASK FIO2 AT 70% FULL REPORT GIVEN TO NURSE DEO
[2018-05-15] MEDS ORDERED: LORAZEPAM 2 MG/ML 1 ML VIAL IM PRN (17:30)
--- NOTE | 2018-05-15 19:45 | NUR ---
PT IS IN BED, CONFUSION NOTED. ABLE TO STATE NAME AND . NOT ABLE TO RECALL LOCATION. ABLE TO RECOGNIZE SON. WAS GIVEN ATIVAN EARLIER. SON SIGNED CONSENT FOR PROCEDURE OF BRONCHOSCOPY. NPO AT MIDNIGHT. PT ON BIPAP. ATTEMPT TO TAKE OF MASK. RT IN ROOM. EXPLAINED TO SON REASONING BEHIND BIPAP. PT CONTINUES TO TAKE OFF MASK. APPLIED CREAM TO BOTTOM PER PT REQUEST. DUE TO SKIN DISCOMFORT. REPOSITIONED.
[2018-05-15] MEDS ORDERED: LORAZEPAM 2 MG/ML 1 ML VIAL IVP PRN (23:30)
[2018-05-16] VITALS (12 sets, daily range): BP systolic 98–139; BP diastolic 52–95
[2018-05-16] MEDS: ACETYLCYSTEINE 20% 200MG/ML 4ML VIAL PO SCH ×6 (00:22→23:46)
[2018-05-16] MEDS: IPRATROPIUM/ALBUTEROL SULFATE 3 ML SOLUTION IH SCH ×6 (00:22→23:45)
[2018-05-16] MEDS: ONDANSETRON HCL 4 MG/2 ML VIAL IV PRN (03:02)
[2018-05-16 03:57] LABS: HEMATOCRIT 32.8 % (36-48); MEAN CORPUSCULAR HEMOGLOBIN 31.4 pg (27.0-33.0); MEAN CORPUSCULAR HGB CONC 32.8 g/dL (32.0-36.0); MEAN CORPUSCULAR VOLUME 95.6 fL (79-99); NUCLEATED RED BLOOD CELLS 0.1 % (0.0-0.19); PLATELET COUNT (AUTO) 382 K/uL (130-400); RED BLOOD CELL COUNT(AUTO) 3.44 MIL/uL (4.00-5.50); RED CELL DISTRIBUTION WIDTH 15.9 % (11.0-15.5); WHITE BLOOD COUNT (AUTO) 9.9 K/uL (4.8-10.8)
[2018-05-16 04:06] LABS: CREATININE 1.2 mg/dL (0.5-1.5); MAGNESIUM 1.7 mg/dL (1.80-2.40); POTASSIUM 3.7 mmol/L (3.5-5.1)
[2018-05-16 04:46] LABS: ABG HCO3 40.3 mmol/L (21.0-28.0); ABG OXYGEN SATURATION 93.9 % (95.0-99.0); ABG PCO2 56 mmHg (32-45)
[2018-05-16] MEDS: ARTIFICAL TEARS SOL 15 ML OU SCH ×4 (05:15→18:00)
[2018-05-16] MEDS: POTASSIUM CHLORIDE 20MEQ/100ML 100 ML IV PRN ×2 (06:34→23:50)
[2018-05-16] MEDS: LIDOCAINE HCL-MPF 1% 2ML VIAL IVP PRN ×2 (06:34→23:50)
[2018-05-16] MEDS: INSULIN HUMULIN R 100 UNIT/ML 3ML SQ SCH ×3 (06:59→22:23)
[2018-05-16] MEDS: METHYLPREDNISOLONE SOD SUCC 40MG/ML 1ML IVP SCH ×2 (08:06→21:09)
[2018-05-16] MEDS: FAMOTIDINE/PF 20 MG/2 ML VIAL IV SCH (08:06)
[2018-05-16] MEDS: FUROSEMIDE 10 MG/ML 4ML VIAL IV SCH (08:07)
[2018-05-16] MEDS: BUDESONIDE 0.5 MG/2 ML INH IH SCH ×2 (08:53→19:10)
[2018-05-16] MEDS: DOCUSATE NA 100MG/10ML UDCUP NG SCH ×2 (09:00→20:44)
--- NOTE | 2018-05-16 10:00 | NUR ---
NO TREATMENT. Pt NPO AT THIS TIME SECONDARY TO BRONCHOSCOPY THIS AM. Pt TO BE SEEN TOMORROW. RN GYN WILL CONTINUE TO FOLLOW AT THIS TIME. Addendum: 05/16/18 at 1342 by ALLI BRAND, [facility] ST Amended: Links added.
[2018-05-16] MEDS ORDERED: PROPOFOL 10 MG/ML 20ML VIAL IV ONE (11:16)
--- NOTE | 2018-05-16 14:00 | NUR ---
NO RESIDUAL ASPIRATED MEDICATION, WATER AND CONTINUOUS TUBE FEEDING RESUMED AT 50ML/HR, TOLERATED WELL, CALL LIGHT WITHIN REACH, FAMILY AT BEDSIDE. Addendum: 05/19/18 at 1920 by SIMON LUCAS RN RN INCORRECT PATIENT
--- NOTE | 2018-05-16 15:34 | NUR ---
TREATMENT COMPLETED. Pt RAISED TO 90 DEGREES IN BED. Pt COOPERATIVE WITH COAXING. Pt ON NON-REBREATHER AT THE TIME OF THE SESSION. Pt CURRENTLY S/P BRONCHOSCOPY THIS AM. THERAPEUTIC TRIALS OF PUREED AND NECTAR-THICK LIQUIDS PRESENTED X5 WITH LARYNGEAL ELEVATION PALPATED AND PRESENT. PHARYNGEAL RESPONSE TIME DELAYED, COMPENSATED WITH THICKENER. Pt IS IMPULSIVE WITH P.O. AT THIS TIME, VERBAL CUES REQUIRED DURING INTAKE. RECOMMEND CONTINUED PUREED, NECTAR-THICK LIQUIDS AT THIS TIME. RECOMMEND CONTINUED SAFE SWALLOW PRECAUTIONS OF SEATED AT 90 DEGREES, NO STRAWS, SMALL BITES AND SIPS, ASSIST WITH P.O. TOW DRIVER COORDINATED CARE WITH NURSE MONTES. Addendum: 05/16/18 at 1538 by ALLI BRAND [facility] Amended: Links added.
--- NOTE | 2018-05-16 18:00 | NUR ---
NO RESIDUAL ASPIRATED MEDICATION, WATER AND CONTINUOUS TUBE FEEDING RESUMED AT 50ML/HR, TOLERATED WELL, CALL LIGHT WITHIN REACH, FAMILY AT BEDSIDE. Addendum: 05/19/18 at 1919 by SIMON LUCAS RN RN INCORRECT PATIENT
[2018-05-16 20:19] LABS: MAGNESIUM 2.1 mg/dL (1.80-2.40); POTASSIUM 3.8 mmol/L (3.5-5.1)
[2018-05-16] MEDS: HYDROCODONE/ACETAMINOPHEN 5/325 MG TAB PO PRN (20:44)
--- NOTE | 2018-05-17 | NUR ---
PT WAS GIVEN PAIN MEDICATION DUE TO PAIN TO RIGHT LEG. BED BATH GIVEN AND CLEANSED WITH CHG WIPES. ALLEVYN PATCH APPLIED TO BOTTOM. REDNESS NOTED. REPOSITIONED. PT CONTINUES ON NEBULIZER TREATMENTS. POTASSIUM GIVEN TO PROVIDE COVERAGE FOR 3.6 LEVEL. AFTER 30 MINUTES PT HAD EYES CLOSED AND STABLE. LEFT IJ PATENT. NEW IV STARTED TO RIGHT WRIST 22G
--- NOTE | 2018-05-17 00:30 | NUR ---
22G TO RIGHT WRIST STARTED. LEFT IJ PATENT.
[2018-05-17 03:00] VITALS: BP 114/83
[2018-05-17] MEDS: ARTIFICAL TEARS SOL 15 ML OU SCH ×5 (05:40→23:35)
[2018-05-17] MEDS: IPRATROPIUM/ALBUTEROL SULFATE 3 ML SOLUTION IH SCH ×4 (06:06→23:58)
[2018-05-17] MEDS: ACETYLCYSTEINE 20% 200MG/ML 4ML VIAL PO SCH ×4 (06:06→23:58)
[2018-05-17] MEDS: BUDESONIDE 0.5 MG/2 ML INH IH SCH ×2 (06:39→19:21)
[2018-05-17] MEDS: INSULIN HUMULIN R 100 UNIT/ML 3ML SQ SCH ×4 (06:53→21:01)
[2018-05-17 07:53] VITALS: BP 124/57
[2018-05-17] MEDS: DOCUSATE NA 100MG/10ML UDCUP NG SCH ×2 (08:03→21:02)
[2018-05-17] MEDS: FAMOTIDINE/PF 20 MG/2 ML VIAL IV SCH (08:03)
[2018-05-17] MEDS: METHYLPREDNISOLONE SOD SUCC 40MG/ML 1ML IVP SCH (08:04)
--- NOTE | 2018-05-17 10:54 | NUR ---
Nutrition Follow-up: Pt. S/P Fiberoptic bronchoscopy(05/16/18). Pt. on 75gm CCD Puree diet with [place] Thick Liquids. Pt. reports good p.o. intake this morning. Per EMR, pt. ate 100% of b'fast today; prev. with 50% p.o. intake. Spoke with pt. regarding nutritional supplementation and pt. agreed to try. Labs reviewed(Alb 2.1). LBM: 05/12/18. Pt. on medication for lower GI distress. SR-16, right knee and calf incision/coccyx redness. Recommendations: 1) Rec. [place] Glucerna supp. QD with lunch meal. 2) Continue to monitor pt's nutritional status. 3) Consult RD as nutrition concerns arise. Addendum: 05/17/18 at [address] Amended: Links added.
[2018-05-17 11:48] VITALS: BP 117/57
--- NOTE | 2018-05-17 11:56 | NUR ---
FOLLOW-UP COMPLETED. Pt SEATED IN BED AT 90 DEGREES INDEPENDENTLY FEEDING AT THIS TIME. Pt CURRENTLY AT NECTAR-THICK, PUREED TEXTURE DIET. Pt DID NOT PRESENT WITH +S/S OF ASPIRATION AT BEDSIDE. RECOMMEND CONTINUED PUREED, NECTAR-THICK LIQUIDS. FOUNDER CHAIRMAN AND CHIEF CREATIVE OFFICER WILL CONTINUE TO FOLLOW Pt. Addendum: 05/17/18 at 1157 by ALLI BRAND, [facility] Amended: Links added.
[2018-05-17 15:34] VITALS: BP 128/62
--- NOTE | 2018-05-17 17:10 | NUR ---
DC PLAN SON CALLED. TELEPHONE CONSENT SIGNED WITH HECTOR ROMO DIRECTOR. INFO SENT. SPOKE TO REP. SAID WILL BE BE BY TO VISIT WITH PATIENT. DC PLAN FOR TOMORROW. ANTONIA SENT. EMS SET UP. PATIENT BED BOUND AT THIS TIME S/P FEMUR FRACTURE, CONFUSED, 02 4L NC. Addendum: 05/17/18 at 1712 by SIDNEY RUIZ RN CM Amended: Links added.
[2018-05-17 20:07] VITALS: BP 126/59
[2018-05-18] VITALS (7 sets, daily range): BP systolic 104–145; BP diastolic 58–72
[2018-05-18] MEDS ORDERED: DEXTROSE 50%-WATER 50 ML DISP.SYRIN IV ONE (01:14)
--- NOTE | 2018-05-18 01:19 | NUR ---
BLOOD SUGAR 40, PATIENT AWAKE AND APPEARS ASYMPTOMATIC HYPOGLYCEMIA PROTOCOL STARTED. BLOOD SUGAR MONITORED Q 15 TO 30 MIN. D50 GIVEN FOR LOW BLOOD SUGARS. PATIENT CONTINUE AWAKE AND APPEARS ASYMPTOMATIC CONTINUE TO MONITOR..
[2018-05-18] MEDS ORDERED: GLUCAGON 1MG KIT 1 MG ML IM PRN (01:30)
[2018-05-18] MEDS: DEXTROSE 50%-WATER 50 ML DISP.SYRIN IV PRN ×2 (02:34→04:39)
[2018-05-18] MEDS: ARTIFICAL TEARS SOL 15 ML OU SCH ×3 (05:58→18:00)
--- NOTE | 2018-05-18 06:05 | NUR ---
DR ROE PAGED REGARDING BLOOD SUGAR. RECEIVED RETURN CALL INFORMED OF BLOOD SUGARS AND ACTIONS. BLOOD SUGAR 69 AT THIS TIME. ORDER RECEIVED AND PLACED IN COMPUTER. D10 STARTED PER ORDERS.
[2018-05-18] MEDS: DEXTROSE 10%-WATER 1,000 ML IV SCH (06:23)
[2018-05-18] MEDS: INSULIN HUMULIN R 100 UNIT/ML 3ML SQ SCH ×3 (06:28→20:55)
--- NOTE | 2018-05-18 06:37 | NUR ---
BLOOD SUGAR 97 CONTINUE TO MONITOR
[2018-05-18] MEDS: IPRATROPIUM/ALBUTEROL SULFATE 3 ML SOLUTION IH SCH ×3 (07:03→18:40)
[2018-05-18] MEDS: ACETYLCYSTEINE 20% 200MG/ML 4ML VIAL PO SCH ×3 (07:04→18:40)
[2018-05-18] MEDS: BUDESONIDE 0.5 MG/2 ML INH IH SCH ×2 (07:22→18:40)
[2018-05-18] MEDS: FAMOTIDINE/PF 20 MG/2 ML VIAL IV SCH (09:25)
[2018-05-18] MEDS: DOCUSATE NA 100MG/10ML UDCUP NG SCH ×2 (09:26→21:00)
--- NOTE | 2018-05-18 16:30 | NUR ---
NO RESIDUAL ASPIRATED MEDICATION, WATER AND BOLUS FEEDING GIVEN, TOLERATED WELL, CALL LIGHT WITHIN REACH, FAMILY AT BEDSIDE. Addendum: 05/19/18 at 1919 by SIMON LUCAS RN RN INCORRECT PATIENT
[2018-05-19] MEDS: IPRATROPIUM/ALBUTEROL SULFATE 3 ML SOLUTION IH SCH ×5 (00:19→23:18)
[2018-05-19] MEDS: ACETYLCYSTEINE 20% 200MG/ML 4ML VIAL PO SCH ×5 (00:19→23:19)
[2018-05-19] MEDS: DEXTROSE 10%-WATER 1,000 ML IV SCH ×2 (01:24→03:22)
[2018-05-19 03:45] VITALS: BP 102/78
[2018-05-19 04:37] LABS: BASOPHILS % (AUTO) 0.3 % (0.0-5.0); EOSINOPHILS % (AUTO) 0.9 % (0.0-8.0); HEMATOCRIT 31.1 % (36-48); LYMPHOCYTES % (AUTO) 11.1 % (21.0-51.0); MEAN CORPUSCULAR HEMOGLOBIN 31.7 pg (27.0-33.0); MEAN CORPUSCULAR HGB CONC 32.8 g/dL (32.0-36.0); MEAN CORPUSCULAR VOLUME 96.4 fL (79-99); MONOCYTES % (AUTO) 13.8 % (3.0-13.0); NEUTROPHILS % (AUTO) 73.9 % (40.0-77.0); PLATELET COUNT (AUTO) 211 K/uL (130-400); RED BLOOD CELL COUNT(AUTO) 3.23 MIL/uL (4.00-5.50); WHITE BLOOD COUNT (AUTO) 4.8 K/uL (4.8-10.8)
[2018-05-19 04:47] LABS: CREATININE 0.9 mg/dL (0.5-1.5); MAGNESIUM 1.4 mg/dL (1.80-2.40); POTASSIUM 3.3 mmol/L (3.5-5.1)
[2018-05-19 05:00] LABS: B-TYPE NATRIURETIC PEPTIDE 212 pg/mL (0-100)
[2018-05-19] MEDS: ARTIFICAL TEARS SOL 15 ML OU SCH ×4 (06:07→23:39)
[2018-05-19] MEDS: POTASSIUM CHLORIDE 20MEQ/100ML 100 ML IV PRN (06:10)
[2018-05-19] MEDS: BUDESONIDE 0.5 MG/2 ML INH IH SCH ×2 (06:27→19:53)
[2018-05-19] MEDS: INSULIN HUMULIN R 100 UNIT/ML 3ML SQ SCH ×4 (06:35→20:40)
[2018-05-19 07:18] VITALS: BP 98/60
--- NOTE | 2018-05-19 07:50 | NUR ---
ASSESSMENT ENCOUNTERED PT ASLEEP BUT AROUSEABLE, A&OX3 BUT FORGETFUL, CALM COOPERATIVE AND DOES NOT APPEAR TO BE IN ANY DISTRESS NOR ANY NEURO DEFICITS PRESENT. NO RESIDUALS ASPIRATED. PT RE-POSITIONED TO H[facility] GANDHI'S FOR FEEDING AND MEDICATION ADMINISTRATION, PEG TUBE SITE DRY AND INTACT AND SECURED WITH ABDOMINAL BINDER. TOLERATED WELL, CALL LIGHT WITHIN REACH, FAMILY AT BEDSIDE. Addendum: 05/19/18 at 1918 by SIMON LUCAS RN RN INCORRECT PATIENT
[2018-05-19 08:37] LABS: ABG BASE EXCESS 12.1 mmol/L (-2.0-3.0); ABG HCO3 36.5 mmol/L (21.0-28.0); ABG OXYGEN SATURATION 96.8 % (95.0-99.0); ABG PCO2 45 mmHg (32-45)
[2018-05-19] MEDS: FAMOTIDINE/PF 20 MG/2 ML VIAL IV SCH (08:50)
[2018-05-19] MEDS: DOCUSATE NA 100MG/10ML UDCUP NG SCH ×2 (08:50→20:31)
[2018-05-19 11:22] VITALS: BP 122/67
--- NOTE | 2018-05-19 16:00 | NUR ---
NO RESIDUAL ASPIRATED MEDICATION, WATER AND BOLUS FEEDING GIVEN, TOLERATED WELL, CALL LIGHT WITHIN REACH, FAMILY AT BEDSIDE. Addendum: 05/19/18 at 1917 by SIMON LUCAS RN RN INCORRECT PATIENT
[2018-05-19 16:03] VITALS: BP 120/65
--- NOTE | 2018-05-19 17:30 | NUR ---
DISCHARGE INSTRUCTIONS GIVEN, REPORT CALLED TO [place], [place], SPOKE TO LUDIN SHER, PT DISCHARGED VIA AMBULANCE TRANSPORTATION SERVICE. Addendum: 05/19/18 at 1917 by SIMON LUCAS RN RN INCORRECT PATIENT
[2018-05-19 19:20] VITALS: BP 107/48
[2018-05-19] MEDS: PREDNISONE 20 MG TABLET PO SCH (20:31)
[2018-05-19 23:29] VITALS: BP 114/62
[2018-05-20 03:47] VITALS: BP 138/61
[2018-05-20] MEDS: ARTIFICAL TEARS SOL 15 ML OU SCH (05:03)
[2018-05-20] MEDS: INSULIN HUMULIN R 100 UNIT/ML 3ML SQ SCH (05:51)
[2018-05-20] MEDS: IPRATROPIUM/ALBUTEROL SULFATE 3 ML SOLUTION IH SCH ×2 (06:32→11:40)
[2018-05-20] MEDS: BUDESONIDE 0.5 MG/2 ML INH IH SCH (06:32)
[2018-05-20] MEDS: ACETYLCYSTEINE 20% 200MG/ML 4ML VIAL PO SCH ×2 (06:34→11:40)
[2018-05-20 08:19] VITALS: BP 115/60
[2018-05-20] MEDS: DOCUSATE NA 100MG/10ML UDCUP NG SCH (09:37)
[2018-05-20] MEDS: FAMOTIDINE/PF 20 MG/2 ML VIAL IV SCH (09:38)
[2018-05-20] MEDS: PREDNISONE 20 MG TABLET PO SCH (09:38)
[2018-05-20 12:34] VITALS: BP 118/54
== END 2018-05-20 12:40 | DRG 853 ==
LOC: EDH 05:06 → EDHIP 07:24 → 2BH 19:10 → 2CV 05-06 13:19 → 2CH 05-06 14:13 → 2BH 05-06 14:13 → 2CV 05-06 14:28 → 2BH 05-06 14:29 → 4AH 05-13 17:23 → 2BH 05-13 17:27 → 4BH 05-13 19:16 → 2DH 05-15 16:57
PROVIDERS: ADMIT Internal Medicine; ATTEND Internal Medicine
PROC: 02HV33Z Insertion of Infusion Device into Superior Vena Cava, Percutaneous Approach (ICD-10-PCS; principal; 2018-05-02)
PROC: 5A1955Z Respiratory Ventilation, Greater than 96 Consecutive Hours (ICD-10-PCS; 2018-05-02)
PROC: B548ZZA Ultrasonography of Superior Vena Cava, Guidance (ICD-10-PCS; 2018-05-02)
PROC: 0QSB06Z Reposition Right Lower Femur with Intramedullary Internal Fixation Device, Open Approach (ICD-10-PCS; 2018-05-06)
PROC: 5A09357 Assistance with Respiratory Ventilation, Less than 24 Consecutive Hours, Continuous Positive Airway Pressure (ICD-10-PCS; 2018-05-08)
PROC: 5A09357 Assistance with Respiratory Ventilation, Less than 24 Consecutive Hours, Continuous Positive Airway Pressure (ICD-10-PCS; 2018-05-10)
PROC: 5A09357 Assistance with Respiratory Ventilation, Less than 24 Consecutive Hours, Continuous Positive Airway Pressure (ICD-10-PCS; 2018-05-11)
PROC: 5A09357 Assistance with Respiratory Ventilation, Less than 24 Consecutive Hours, Continuous Positive Airway Pressure (ICD-10-PCS; 2018-05-15)
PROC: 0B9F8ZX Drainage of Right Lower Lung Lobe, Via Natural or Artificial Opening Endoscopic, Diagnostic (ICD-10-PCS; 2018-05-16)
DX: A41.9 Sepsis, unspecified organism (principal); J96.01 Acute respiratory failure with hypoxia; J96.02 Acute respiratory failure with hypercapnia; R65.21 Severe sepsis with septic shock; J18.1 Lobar pneumonia, unspecified organism; G92 Toxic encephalopathy; N17.9 Acute kidney failure, unspecified; J98.11 Atelectasis; D68.9 Coagulation defect, unspecified; I42.9 Cardiomyopathy, unspecified; J44.0 Chronic obstructive pulmonary disease with (acute) lower respiratory infection; J95.851 Ventilator associated pneumonia; N39.0 Urinary tract infection, site not specified; Z68.41 Body mass index [BMI] 40.0-44.9, adult; S72.401A Unspecified fracture of lower end of right femur, initial encounter for closed fracture; S22.32XA Fracture of one rib, left side, initial encounter for closed fracture; S82.101A Unspecified fracture of upper end of right tibia, initial encounter for closed fracture; E87.5 Hyperkalemia; N18.3 Chronic kidney disease, stage 3 (moderate); E11.22 Type 2 diabetes mellitus with diabetic chronic kidney disease; I12.9 Hypertensive chronic kidney disease with stage 1 through stage 4 chronic kidney disease, or unspecified chronic kidney disease; D64.9 Anemia, unspecified; E66.01 Morbid (severe) obesity due to excess calories; E78.5 Hyperlipidemia, unspecified; E83.42 Hypomagnesemia; E87.6 Hypokalemia; E87.70 Fluid overload, unspecified; F03.90 Unspecified dementia, unspecified severity, without behavioral disturbance, psychotic disturbance, mood disturbance, and anxiety; F40.240 Claustrophobia; W01.0XXA Fall on same level from slipping, tripping and stumbling without subsequent striking against object, initial encounter; I48.0 Paroxysmal atrial fibrillation; G47.33 Obstructive sleep apnea (adult) (pediatric); I25.10 Atherosclerotic heart disease of native coronary artery without angina pectoris; I25.2 Old myocardial infarction; I48.2 Chronic atrial fibrillation; K57.30 Diverticulosis of large intestine without perforation or abscess without bleeding; M47.812 Spondylosis without myelopathy or radiculopathy, cervical region; M48.02 Spinal stenosis, cervical region; R13.10 Dysphagia, unspecified; Z79.01 Long term (current) use of anticoagulants; Z79.4 Long term (current) use of insulin; Z95.5 Presence of coronary angioplasty implant and graft; Y93.89 Activity, other specified; Y92.129 Unspecified place in nursing home as the place of occurrence of the external cause; Y99.8 Other external cause status
CPT/HCPCS: 31500; 36415; 36600; 70450; 71045; 71250; 72125; 73552; 73560; 74176; 76000; 80048; 80053; 80202; 81001; 81003; 82435; 82550; 82803; 82947; 82948; 83605; 83735; 83874; 83880; 84100; 84132; 84295; 84484; 85018; 85025; 85027; 85610; 85730; 86850; 86900; 86901; 86922; 87040; 87071; 87077; 87088; 87101; 87116; 87186; 87205; 87206; 88108; 88305; 92526; 92610; 93005; 93306; 94002; 94003; 94640; 94660; 94664; 94667; 94668; 97039; A4344; C1751; G0378; J0330; J0690; J1630; J1644; J1815; J1940; J2060; J2250; J2310; J2405; J2543; J2704; J2795; J2920; J3010; J3370; J3475; J3480; J3490; J7030; J7040; J7070; J7608